=== PATIENT | female | born 1980 | race African-American/Black ===

== ENCOUNTER 2022-06-02 12:18 | Inpatient (IN) | payer OTHER ==
[2022-06-02] MEDS ORDERED: VANCOMYCIN 1 GM in D5W (PRE-DOCKED) 1,000 MG/250 ML IVPB ONE (13:25)
[2022-06-02] MEDS ORDERED: PIPERACILLIN/TAZOB 3.375 GM 3.375 GM in DEXTROSE 5%-WATER - 50 ML IVPB ONE (13:25)
[2022-06-02] MEDS ORDERED: SODIUM CHLORIDE 0.9% 500 ML INFUS.BAG IV ONE (13:26)
[2022-06-02] MEDS ORDERED: MAG HYDROX/AL HYDROX/SIMETH 30 ML UNIT-DOSE CUP PO ONE (13:26)
[2022-06-02] MEDS ORDERED: ACETAMINOPHEN 1000 MG/100 ML BAG IVPB ONE (13:26)
[2022-06-02] MEDS ORDERED: ONDANSETRON 4 MG/2 ML VIAL IVPB ONE (13:26)
[2022-06-02] MEDS ORDERED: FAMOTIDINE 20 MG/50 ML IVPB 20 MG/50 ML MG IVPB ONE (13:26)
[2022-06-02] MEDS ORDERED: ONDANSETRON 4 MG/2 ML VIAL ONE (14:10)
[2022-06-02] MEDS ORDERED: ACETAMINOPHEN INJECTION 100 ML IVPB ONE (14:10)
[2022-06-02] MEDS ORDERED: VANCOMYCIN/WATER FOR INJ (PEG) 1,000 MG/200 ML BAG IVPB ONE (14:10)
[2022-06-02] MEDS ORDERED: MAG HYDROX/AL HYDROX/SIMETH 30 ML UNIT-DOSE CUP ONE (14:10)
[2022-06-02] MEDS ORDERED: PIPERACILLIN/TAZOB 3.375 GM 3.375 GM/50 ML BAG IVPB ONE (14:11)
[2022-06-02 15:34] LABS: EPI CELLS 36 /uL (0-25.1); HYALINE CASTS 2 /uL (0-3.1); URINE APPEARANCE CLOUDY; URINE BACTERIA >9,000 /uL (0-1359); URINE BILIRUBIN NEGATIVE (NEGATIVE); URINE COLOR YELLOW; URINE GLUCOSE (UA) 3+ (NEGATIVE); URINE KETONE 1+ (NEGATIVE); URINE LEUK ESTERASE NEGATIVE (NEGATIVE); URINE NITRITE NEGATIVE (NEGATIVE); URINE PROTEIN 3+ (NEGATIVE); URINE RBC 5 /uL (0-23.9); URINE UROBILINOGEN 0.2 mg/dL (0.2-1.0)
[2022-06-02 15:59] LABS: VENOUS BASE EXCESS -1.1 mmol/L (-2-2); VENOUS O2 SATURATION 96.1 % (70-80); VENOUS PCO2 44.8 mmHg (38-52); VENOUS PH 7.355 (7.310-7.410)
[2022-06-02 16:10] LABS: BASO % 0.4 % (0-2.0); HEMATOCRIT 25.7 % (32.4-45.2); HEMOGLOBIN 8.7 GM/dL (10.7-15.3); LYMPH % 2.1 % (8-40); MCH 30.9 pg (25.7-33.7); MCHC 33.9 g/dl (32.0-36.0); MEAN CELL VOLUME 91.4 fl (80-96); MEAN PLT VOLUME 8.3 fl (7.5-11.1); NEUT % 93.5 % (42.8-82.8); PLATELET COUNT 312 10^3/uL (134-434); RBC 2.81 M/mm3 (3.60-5.2); RDW 12.5 % (11.6-15.6); WHITE BLOOD COUNT 11.9 K/mm3 (4.0-10.0)
[2022-06-02 16:13] LABS: CHLORIDE 98 mmol/L (98-107); SODIUM 135 mmol/L (136-145)
[2022-06-02 16:17] LABS: ALBUMIN 2.4 g/dl (3.4-5.0); ANION GAP 14 MMOL/L (8-16); BLOOD UREA NITROGEN 18.4 mg/dL (7-18); CALCIUM 8.7 mg/dL (8.5-10.1); CO2 23 mmol/L (21-32)
[2022-06-02 16:19] LABS: LIPASE 101 U/L (73-393)
[2022-06-02 16:20] LABS: CREATININE 1.1 mg/dL (0.55-1.3); SGPT/ALT 13 U/L (13-61)
[2022-06-02 16:21] LABS: SGOT/AST 14 U/L (15-37)
[2022-06-02 16:22] LABS: BILIRUBIN,TOTAL 0.3 mg/dL (0.2-1); TOT PROT 6.8 g/dl (6.4-8.2)
[2022-06-02 16:23] LABS: ALK PHOS 98 U/L (45-117)
[2022-06-02 16:34] LABS: GLUCOSE,RANDOM 434 mg/dL (74-106)
[2022-06-02] MEDS ORDERED: INSULIN (NOVOLOG) ASPART 100 UNITS/ML 10ML VIAL SQ ONE (16:40)
[2022-06-02 16:57] LABS: URINE WBC 93.7 /uL (0-25.8)
[2022-06-02 17:09] LABS: ANISOCYTOSIS 0; MACROCYTOSIS 0; OVALOCYTE 1+
[2022-06-02] MEDS ORDERED: SODIUM CHLORIDE 1,000 ML IV STA (17:38)
[2022-06-02] MEDS: ENOXAPARIN NA (PORCINE) 40 MG/0.4 ML DISP.SYRIN SQ SCH (18:58)
[2022-06-02] MEDS ORDERED: ENOXAPARIN NA (PORCINE) 40 MG/0.4 ML DISP.SYRIN SQ ONE (19:00)
[2022-06-02] MEDS: SODIUM CHLORIDE 1,000 ML IV SCH (21:38)
[2022-06-03] MEDS: INSULIN SLIDING SCALE (NOVOLOG) 1 VIAL SQ SCH ×5 (03:24→23:01)
[2022-06-03 07:46] VITALS: BMI 24.3
[2022-06-03] MEDS ORDERED: INSULIN REGULAR HUMAN 100 UNITS/ML *VIAL SQ ONE (08:32)
[2022-06-03] MEDS ORDERED: VANCOMYCIN 1 GM/200 ML PREMIX BAG (RESTRICTED TO ID ONLY) IVPB ONE (09:00)
[2022-06-03] MEDS: INSULIN (LEVEMIR) 100 UNITS/ML UNITS SQ SCH ×2 (10:05→16:40)
[2022-06-03] MEDS: ENOXAPARIN NA (PORCINE) 40 MG/0.4 ML DISP.SYRIN SQ SCH (10:06)
[2022-06-03] MEDS: PIPERACILLIN/TAZOB 3.375 GM 3.375 GM in DEXTROSE 5%-WATER - 50 ML IVPB SCH ×2 (10:06→17:21)
[2022-06-03 10:49] LABS: HEMATOCRIT 23.2 % (32.4-45.2); HEMOGLOBIN 7.8 GM/dL (10.7-15.3); MCH 30.6 pg (25.7-33.7); MCHC 33.7 g/dl (32.0-36.0); MEAN CELL VOLUME 90.9 fl (80-96); MEAN PLT VOLUME 7.4 fl (7.5-11.1); PLATELET COUNT 304 10^3/uL (134-434); RBC 2.55 M/mm3 (3.60-5.2); RDW 12.7 % (11.6-15.6); WHITE BLOOD COUNT 13.1 K/mm3 (4.0-10.0)
[2022-06-03 11:19] LABS: ALBUMIN 2.1 g/dl (3.4-5.0); BLOOD UREA NITROGEN 18.4 mg/dL (7-18); CALCIUM 8.7 mg/dL (8.5-10.1); MAGNESIUM 1.6 mg/dL (1.8-2.4)
[2022-06-03 11:22] LABS: CREATININE 0.9 mg/dL (0.55-1.3); PHOSPHOROUS 1.9 mg/dL (2.5-4.9)
[2022-06-03 11:23] LABS: BILIRUBIN,TOTAL 0.3 mg/dL (0.2-1); TOT PROT 6.4 g/dl (6.4-8.2)
[2022-06-03] MEDS: INSULIN (NOVOLOG) ASPART 100 UNITS/ML 10ML VIAL SQ SCH ×2 (11:30→16:43)
[2022-06-03] MEDS ORDERED: FLU VACC QS2022-23(6MOS UP)/PF 60 MCG/0.5 ML SYRINGE IM ONE (12:00)
[2022-06-03 12:47] LABS: EPI CELLS >36 /uL (0-25.1); HYALINE CASTS 5 /uL (0-3.1); PH,URINE 5.5 (5.0-8.0); URINE APPEARANCE CLOUDY; URINE BILIRUBIN NEGATIVE (NEGATIVE); URINE COLOR YELLOW; URINE GLUCOSE (UA) 3+ (NEGATIVE); URINE KETONE TRACE (NEGATIVE); URINE LEUK ESTERASE 2+ (NEGATIVE); URINE NITRITE POSITIVE (NEGATIVE); URINE PROTEIN 3+ (NEGATIVE); URINE UROBILINOGEN 0.2 mg/dL (0.2-1.0); URINE WBC 535 /uL (0-25.8)
[2022-06-03 12:49] LABS: PHENCYCLIDINE,URINE NEGATIVE (NEGATIVE); URINE BARBITURATES NEGATIVE (NEGATIVE)
[2022-06-03 12:50] LABS: COCAINE, UR NEGATIVE (NEGATIVE); METHADONE, UR NEGATIVE (NEGATIVE)
[2022-06-03 12:55] LABS: OPIATES, URI NEGATIVE (NEGATIVE)
[2022-06-03 12:57] LABS: URINE AMPHETAMINES NEGATIVE (NEGATIVE); URINE BENZODIAZEPINES NEGATIVE (NEGATIVE); URINE RBC 18.3 /uL (0-23.9); YEAST NEGATIVE (NEGATIVE)
[2022-06-03] MEDS: BACITRACIN ZINC 15 GM TUBE TOPICAL OINTMENT TP SCH (14:48)
[2022-06-03] MEDS ORDERED: NAPH,MB-DB/K PH,MBDB POWDER PACKET PO ONE (16:23)
[2022-06-03] MEDS ORDERED: MAGNESIUM SULF 50% (8.12 MEQ/2 ML-1 GM VIAL) IVPB ONE (16:23)
[2022-06-03] MEDS: SODIUM CHLORIDE 1,000 ML IV SCH (17:21)
[2022-06-03] MEDS ORDERED: INSULIN (NOVOLOG) ASPART 100 UNITS/ML 10ML VIAL ONE (21:41)
[2022-06-04] MEDS: PIPERACILLIN/TAZOB 3.375 GM 3.375 GM in DEXTROSE 5%-WATER - 50 ML IVPB SCH ×3 (01:09→17:25)
[2022-06-04] MEDS ORDERED: INSULIN (LEVEMIR) 100 UNITS/ML UNITS SQ ONE ×2 (05:23→11:05)
[2022-06-04] MEDS: INSULIN (LEVEMIR) 100 UNITS/ML UNITS SQ SCH (06:44)
[2022-06-04] MEDS: INSULIN (NOVOLOG) ASPART 100 UNITS/ML 10ML VIAL SQ SCH ×2 (06:45→12:06)
[2022-06-04] MEDS: INSULIN SLIDING SCALE (NOVOLOG) 1 VIAL SQ SCH ×2 (06:45→11:16)
[2022-06-04] MEDS: BACITRACIN ZINC 15 GM TUBE TOPICAL OINTMENT TP SCH (09:48)
[2022-06-04] MEDS: ENOXAPARIN NA (PORCINE) 40 MG/0.4 ML DISP.SYRIN SQ SCH (09:48)
[2022-06-04 10:32] LABS: HEMATOCRIT 25.4 % (32.4-45.2); HEMOGLOBIN 8.6 GM/dL (10.7-15.3); MCH 30.8 pg (25.7-33.7); MCHC 33.8 g/dl (32.0-36.0); MEAN CELL VOLUME 91.3 fl (80-96); MEAN PLT VOLUME 7.6 fl (7.5-11.1); PLATELET COUNT 360 10^3/uL (134-434); RBC 2.78 M/mm3 (3.60-5.2); RDW 12.9 % (11.6-15.6); WHITE BLOOD COUNT 9.2 K/mm3 (4.0-10.0)
[2022-06-04 11:04] VITALS: RESP 17
[2022-06-04] MEDS ORDERED: INSULIN (NOVOLOG) ASPART 100 UNITS/ML 10ML VIAL SQ SCH (11:06)
[2022-06-04 11:08] LABS: CALCIUM 8.8 mg/dL (8.5-10.1)
[2022-06-04 11:09] LABS: ALBUMIN 2.1 g/dl (3.4-5.0); BLOOD UREA NITROGEN 10.9 mg/dL (7-18)
[2022-06-04 11:11] LABS: BILIRUBIN,TOTAL 0.3 mg/dL (0.2-1); TOT PROT 6.6 g/dl (6.4-8.2)
[2022-06-04 11:12] LABS: CREATININE 0.8 mg/dL (0.55-1.3)
[2022-06-04] MEDS ORDERED: INSULIN SLIDING SCALE (NOVOLOG) 1 VIAL SQ SCH (16:15)
[2022-06-04] MEDS ORDERED: INSULIN (LEVEMIR) 100 UNITS/ML UNITS SQ SCH (22:00)
[2022-06-04 23:54] VITALS: BP 145/91; PULSE 110; TEMP 98.2
== END 2022-06-04 21:00 | disposition short-term general hospital (02) | DRG 638 ==
LOC: JER 12:18 → JERBED 16:45 → J7W 06-03 01:44
PROVIDERS: ADMIT Internal Medicine; ATTEND Internal Medicine
DX: E11.69 Type 2 diabetes mellitus with other specified complication (principal); M86.8X7 Other osteomyelitis, ankle and foot; D64.9 Anemia, unspecified; J45.909 Unspecified asthma, uncomplicated; K58.9 Irritable bowel syndrome, unspecified; E11.65 Type 2 diabetes mellitus with hyperglycemia; R00.0 Tachycardia, unspecified; D72.829 Elevated white blood cell count, unspecified; Z79.4 Long term (current) use of insulin; Z91.14 Patient's other noncompliance with medication regimen; R11.2 Nausea with vomiting, unspecified
CPT/HCPCS: 0241U-QW; 36415; 73630-TC-LT; 73660-TC-LT-FY; 80053; 80307; 81003; 82010; 82803; 82962; 83036; 83605; 83690; 83735; 84100; 84443; 85025; 85027; 87040; 87070; 87086; 87186; 87205; 93005; 93010; 93971-TC; 99285-25; G0008; Q2036

== ENCOUNTER 2022-10-01 16:42 | Emergency (ER) | payer OTHER ==
[2022-10-01] MEDS ORDERED: SODIUM CHLORIDE 0.9% 500 ML INFUS.BAG IV ONE (17:17)
[2022-10-01] MEDS ORDERED: TRIMETHOBENZAMIDE HCL 200MG/2ML INJ IM ONE ×2 (17:20→17:50)
[2022-10-01] MEDS ORDERED: DEXTROSE 50%-WATER 25 GM/50 ML DISP.SYRIN ONE (17:36)
[2022-10-01] MEDS ORDERED: DEXTROSE 50%-WATER - 25 GM/50 ML VIAL IVPUSH ONE (17:39)
[2022-10-01] MEDS ORDERED: LACTATED RINGERS SOLUTION 1000 ML INFUS.BAG IV ONE (17:40)
[2022-10-01] MEDS ORDERED: MAGNESIUM SULF 50% (8.12 MEQ/2 ML-1 GM VIAL) IVPB ONE (17:49)
[2022-10-01] MEDS ORDERED: MAGNESIUM SULFATE IN WATER 2 GM/50 ML IVPB IVPB ONE (17:51)
[2022-10-01 18:07] LABS: BASO % 0.9 % (0-2.0); EOS % 0.7 % (0-4.5); HEMATOCRIT 31.7 % (32.4-45.2); HEMOGLOBIN 11.1 GM/dL (10.7-15.3); LYMPH % 29.2 % (8-40); MCH 31.5 pg (25.7-33.7); MEAN CELL VOLUME 90.2 fl (80-96); MEAN PLT VOLUME 8.3 fl (7.5-11.1); MONO % 11.2 % (3.8-10.2); PLATELET COUNT 347 10^3/uL (134-434); RBC 3.52 M/mm3 (3.60-5.2); WHITE BLOOD COUNT 7.9 K/mm3 (4.0-10.0)
[2022-10-01 18:18] VITALS: BMI 22.3
[2022-10-01 18:30] LABS: ALBUMIN 3.5 g/dl (3.4-5.0); CALCIUM 9.5 mg/dL (8.5-10.1)
[2022-10-01 18:31] LABS: BLOOD UREA NITROGEN 26.3 mg/dL (7-18); MAGNESIUM 1.2 mg/dL (1.8-2.4)
[2022-10-01 18:33] LABS: CREATININE 1.1 mg/dL (0.55-1.3)
[2022-10-01 18:34] LABS: PHOSPHOROUS 2.8 mg/dL (2.5-4.9)
[2022-10-01 18:35] LABS: BILIRUBIN,TOTAL 0.3 mg/dL (0.2-1); TOT PROT 7.4 g/dl (6.4-8.2)
[2022-10-01 18:40] LABS: VENOUS O2 SATURATION 71.3 % (70-80); VENOUS PCO2 41.9 mmHg (38-52); VENOUS PH 7.3 (7.310-7.410)
[2022-10-01 20:11] LABS: EPI CELLS 15 /uL (0-25.1); HYALINE CASTS 3 /uL (0-3.1); URINE APPEARANCE CLOUDY; URINE BACTERIA >9,000 /uL (0-1359); URINE BILIRUBIN NEGATIVE (NEGATIVE); URINE COLOR YELLOW; URINE GLUCOSE (UA) 3+ (NEGATIVE); URINE KETONE TRACE (NEGATIVE); URINE LEUK ESTERASE 1+ (NEGATIVE); URINE NITRITE NEGATIVE (NEGATIVE); URINE PROTEIN 2+ (NEGATIVE); URINE UROBILINOGEN 0.2 mg/dL (0.2-1.0); URINE WBC 257 /uL (0-25.8)
[2022-10-01 20:17] LABS: URINE RBC 24.5 /uL (0-23.9)
[2022-10-01] MEDS ORDERED: KCL 10 MEQ IVPB 10 MEQ/100 ML INFUS.BAG IVPB ONE ×3 (20:39→23:45)
[2022-10-01] MEDS: KCL 10 MEQ IVPB 10 MEQ/100 ML INFUS.BAG IVPB SCH ×3 (20:50→22:31)
[2022-10-02 01:06] VITALS: BP 146/98; PULSE 103; RESP 18; TEMP 97.9
== END 2022-10-02 02:05 | disposition home or self-care (01) ==
LOC: JER 16:42
PROC: 3E033GC Introduction of Other Therapeutic Substance into Peripheral Vein, Percutaneous Approach (ICD-10-PCS; principal; 2022-10-01)
PROC: 3E033GC Introduction of Other Therapeutic Substance into Peripheral Vein, Percutaneous Approach (ICD-10-PCS; 2022-10-01)
PROC: 3E033GC Introduction of Other Therapeutic Substance into Peripheral Vein, Percutaneous Approach (ICD-10-PCS; 2022-10-01)
PROC: 3E023GC Introduction of Other Therapeutic Substance into Muscle, Percutaneous Approach (ICD-10-PCS; 2022-10-01)
DX: R11.2 Nausea with vomiting, unspecified (principal); E83.42 Hypomagnesemia; E87.6 Hypokalemia; Z20.822 Contact with and (suspected) exposure to COVID-19
CPT/HCPCS: 0241U-QW; 36415; 80053; 81003; 82010; 82803; 82962; 83690; 83735; 84100; 84484; 84703; 85025; 86850; 86900; 86901; 87086; 87186; 93005; 93010; 99284-25

== ENCOUNTER 2022-11-19 11:43 | Emergency (ER) | payer OTHER ==
[2022-11-19 12:26] VITALS: BMI 23.5
[2022-11-19] MEDS ORDERED: SODIUM CHLORIDE 0.9% 500 ML INFUS.BAG IV ONE (13:53)
[2022-11-19 14:32] LABS: BASO % 0.6 % (0-2.0); EOS % 1.8 % (0-4.5); HEMATOCRIT 27.5 % (32.4-45.2); HEMOGLOBIN 9.2 GM/dL (10.7-15.3); MCH 31.6 pg (25.7-33.7); MCHC 33.3 g/dl (32.0-36.0); MEAN CELL VOLUME 94.8 fl (80-96); MEAN PLT VOLUME 8.8 fl (7.5-11.1); MONO % 11.6 % (3.8-10.2); PLATELET COUNT 270 10^3/uL (134-434); RDW 14.7 % (11.6-15.6); WHITE BLOOD COUNT 5.8 K/mm3 (4.0-10.0)
[2022-11-19 15:00] LABS: POTASSIUM 5.5 mmol/L (3.5-5.1)
[2022-11-19 15:03] LABS: BLOOD UREA NITROGEN 14.8 mg/dL (7-18); MAGNESIUM 1.4 mg/dL (1.8-2.4)
[2022-11-19] MEDS ORDERED: MAGNESIUM SULF 50% (8.12 MEQ/2 ML-1 GM VIAL) IVPB ONE (15:03)
[2022-11-19 15:06] LABS: CREATININE 0.7 mg/dL (0.55-1.3)
[2022-11-19 15:07] LABS: VENOUS BASE EXCESS -1.5 mmol/L (-2-2); VENOUS O2 SATURATION 50.1 % (70-80); VENOUS PCO2 45.9 mmHg (38-52); VENOUS PH 7.342 (7.310-7.410)
[2022-11-19 15:08] LABS: BILIRUBIN,TOTAL 0.3 mg/dL (0.2-1)
[2022-11-19 15:11] LABS: N-TERMINAL BNP 188.5 pg/ml (5-125)
[2022-11-19 15:19] LABS: INR 0.97 (0.83-1.09); PROTHROMBIN TIME (PATIENT) 11.2 SEC (9.7-13.0)
[2022-11-19 15:22] LABS: ACTIVATED PTT 38.2 SECONDS (25.2-36.5)
[2022-11-19 15:24] LABS: EPI CELLS 1 /uL (0-25.1); HYALINE CASTS 0 /uL (0-3.1); PH,URINE 5.5 (5.0-8.0); URINE APPEARANCE CLEAR; URINE BACTERIA 7149 /uL (0-1359); URINE BILIRUBIN NEGATIVE (NEGATIVE); URINE COLOR YELLOW; URINE GLUCOSE (UA) NEGATIVE (NEGATIVE); URINE KETONE NEGATIVE (NEGATIVE); URINE LEUK ESTERASE NEGATIVE (NEGATIVE); URINE NITRITE NEGATIVE (NEGATIVE); URINE PROTEIN 1+ (NEGATIVE); URINE RBC 87 /uL (0-23.9); URINE UROBILINOGEN 0.2 mg/dL (0.2-1.0); URINE WBC 25 /uL (0-25.8)
[2022-11-19 15:27] VITALS: RESP 19
[2022-11-19] MEDS ORDERED: CEFTRIAXONE 1,000 MG in DEXTROSE 5%-WATER - 50 ML IVPB ONE (15:51)
[2022-11-19] MEDS ORDERED: CEFTRIAXONE 1 GM/50 ML BAG ONE (16:48)
[2022-11-19] MEDS ORDERED: MAGNESIUM SULFATE IN WATER 2 GM/50 ML IVPB IVPB ONE (16:48)
[2022-11-19 19:24] VITALS: BP 146/97; PULSE 107; TEMP 98.8
[2022-11-19] MEDS ORDERED: methylPREDNISolone NA SUCC 125 MG/2 ML VIAL IVPUSH ONE (19:31)
[2022-11-19] MEDS ORDERED: methylPREDNISolone NA SUCC 125 MG/2 ML VIAL ONE (19:36)
[2022-11-19 21:13] LABS: POTASSIUM 4.4 mmol/L (3.5-5.1)
[2022-11-19 21:14] LABS: CALCIUM 9.3 mg/dL (8.5-10.1)
[2022-11-19 21:15] LABS: BLOOD UREA NITROGEN 12.5 mg/dL (7-18)
[2022-11-19 21:18] LABS: CREATININE 0.7 mg/dL (0.55-1.3)
[2022-11-19] MEDS ORDERED: INSULIN (NOVOLOG) ASPART 100 UNITS/ML 10ML VIAL ONE (23:38)
== END 2022-11-19 22:43 | disposition home or self-care (01) ==
LOC: JER 11:43
PROC: 3E03329 Introduction of Other Anti-infective into Peripheral Vein, Percutaneous Approach (ICD-10-PCS; principal; 2022-11-19)
PROC: 3E033GC Introduction of Other Therapeutic Substance into Peripheral Vein, Percutaneous Approach (ICD-10-PCS; 2022-11-19)
PROC: 3E033GC Introduction of Other Therapeutic Substance into Peripheral Vein, Percutaneous Approach (ICD-10-PCS; 2022-11-19)
PROC: 3E033GC Introduction of Other Therapeutic Substance into Peripheral Vein, Percutaneous Approach (ICD-10-PCS; 2022-11-19)
DX: E11.649 Type 2 diabetes mellitus with hypoglycemia without coma (principal); R00.0 Tachycardia, unspecified; N39.0 Urinary tract infection, site not specified; D64.9 Anemia, unspecified; Z20.822 Contact with and (suspected) exposure to COVID-19
CPT/HCPCS: 0241U-QW; 36415; 71046-TC-FY; 71275-TC; 80048; 80053; 81003; 82533; 82803; 82962; 83036; 83735; 83880; 84439; 84443; 84703; 85025; 85379; 85610; 85730; 87086; 87186; 87651; 93005; 93010; 93970-TC; 99285-25; Q9967

== ENCOUNTER 2022-12-23 10:25 | Emergency (ER) | payer OTHER ==
[2022-12-23] MEDS ORDERED: LACTATED RINGERS SOLUTION 1000 ML INFUS.BAG IV ONE (10:52)
[2022-12-23] MEDS ORDERED: ONDANSETRON 4 MG/2 ML VIAL IVPUSH ONE (10:52)
[2022-12-23 11:09] VITALS: PULSE 93; TEMP 96.8
[2022-12-23] MEDS ORDERED: ONDANSETRON 4 MG/2 ML VIAL ONE (11:38)
[2022-12-23 11:44] LABS: EOS % 1.1 % (0-4.5); HEMATOCRIT 31.5 % (32.4-45.2); HEMOGLOBIN 10.6 GM/dL (10.7-15.3); MCH 31.2 pg (25.7-33.7); MCHC 33.5 g/dl (32.0-36.0); MEAN PLT VOLUME 8.1 fl (7.5-11.1); MONO % 10.1 % (3.8-10.2); NEUT % 61.8 % (42.8-82.8); PLATELET COUNT 241 10^3/uL (134-434); RBC 3.39 M/mm3 (3.60-5.2); RDW 13.6 % (11.6-15.6); WHITE BLOOD COUNT 4.9 K/mm3 (4.0-10.0)
[2022-12-23 11:55] LABS: POTASSIUM 4.6 mmol/L (3.5-5.1)
[2022-12-23 11:57] LABS: CALCIUM 9.1 mg/dL (8.5-10.1)
[2022-12-23 11:58] LABS: ALBUMIN 3.6 g/dl (3.4-5.0)
[2022-12-23 12:01] LABS: CREATININE 0.9 mg/dL (0.55-1.3)
[2022-12-23 12:02] LABS: BILIRUBIN,TOTAL 0.4 mg/dL (0.2-1); TOT PROT 7.4 g/dl (6.4-8.2)
[2022-12-23 13:59] LABS: EPI CELLS 14 /uL (0-25.1); HYALINE CASTS 0 /uL (0-3.1); URINE APPEARANCE CLEAR; URINE BACTERIA >9,000 /uL (0-1359); URINE BILIRUBIN NEGATIVE (NEGATIVE); URINE COLOR YELLOW; URINE GLUCOSE (UA) 2+ (NEGATIVE); URINE KETONE NEGATIVE (NEGATIVE); URINE LEUK ESTERASE NEGATIVE (NEGATIVE); URINE NITRITE POSITIVE (NEGATIVE); URINE PROTEIN NEGATIVE (NEGATIVE); URINE RBC 6 /uL (0-23.9); URINE UROBILINOGEN 0.2 mg/dL (0.2-1.0); URINE WBC 15 /uL (0-25.8)
[2022-12-23 14:33] VITALS: RESP 17
[2022-12-23 14:36] VITALS: BP 137/70
[2022-12-23] MEDS ORDERED: NITROFURANTOIN MACROCRYSTAL 50 MG CAPSULE (FP) PO SCH (14:45)
== END 2022-12-23 15:22 | disposition home or self-care (01) ==
LOC: JER 10:25
PROC: 3E033NZ Introduction of Analgesics, Hypnotics, Sedatives into Peripheral Vein, Percutaneous Approach (ICD-10-PCS; principal; 2022-12-23)
DX: E10.649 Type 1 diabetes mellitus with hypoglycemia without coma (principal); N39.0 Urinary tract infection, site not specified
CPT/HCPCS: 36415; 71045-TC-FY; 80053; 81003; 82962; 84484; 84703; 85025; 87086; 93005; 93010; 99285-25

== ENCOUNTER 2024-02-03 09:25 | Inpatient (IN) | payer OTHER ==
[2024-02-03 11:00] LABS: MCH 31.4 pg (25.7-33.7); MCHC 34.4 g/dl (32.0-36.0); MEAN CELL VOLUME 91.4 fl (80-96); MEAN PLT VOLUME 8.5 fl (7.5-11.1); PLATELET COUNT 369 10^3/uL (134-434); RBC 3.17 M/mm3 (3.60-5.2); RDW 12.9 % (11.6-15.6); WHITE BLOOD COUNT 7.5 K/mm3 (4.0-10.0)
[2024-02-03 11:17] LABS: CHLORIDE 100 mmol/L (98-107); POTASSIUM 5.7 mmol/L (3.5-5.1); SODIUM 131 mmol/L (136-145)
[2024-02-03 11:18] LABS: CALCIUM 9.5 mg/dL (8.5-10.1)
[2024-02-03 11:19] LABS: ALBUMIN 3.2 g/dl (3.4-5.0); ANION GAP 6 mmol/L (4-13); BLOOD UREA NITROGEN 13.2 mg/dL (7-18); CO2 26 mmol/L (21-32)
[2024-02-03 11:21] LABS: CREATININE 1.1 mg/dL (0.55-1.3); SGOT/AST 42 U/L (15-37); SGPT/ALT 16 U/L (13-61)
[2024-02-03 11:23] LABS: BILIRUBIN,TOTAL 0.6 mg/dL (0.2-1); GLUCOSE,RANDOM 431 mg/dL (74-106)
[2024-02-03 11:25] LABS: ALK PHOS 141 U/L (45-117)
[2024-02-03] MEDS: SODIUM CHLORIDE 1,000 ML IV STA ×2 (11:29→11:59)
[2024-02-03 11:44] LABS: ANISOCYTOSIS 0; HELMET CELLS 0; HOWELL-JOLLY BODIES 0; MACROCYTOSIS 0; OVALOCYTE 0; ROULEAU 0; SICKELED CELLS 0; TARGET CELLS 0; TEAR DROP CELLS 0; TOXIC GRANULATION 0
[2024-02-03] MEDS ORDERED: AMPICILLIN NA/SULBACTAM NA 3 GM/100 ML BAG IVPB ONE (11:49)
[2024-02-03] MEDS: AMPICILLIN NA/SULBACTAM NA 3 GM in SODIUM CHLORIDE 100 ML IVPB ONE (11:59)
[2024-02-03 12:05] LABS: EPI CELLS 30 /uL (0-25.1); HCG,QUALITATIVE URINE Negative; HYALINE CASTS 0 /uL (0-3.1); PH,URINE 5.5 (5.0-8.0); URINE APPEARANCE CLOUDY; URINE BACTERIA >9,000 /uL (0-1359); URINE BILIRUBIN NEGATIVE (NEGATIVE); URINE COLOR YELLOW; URINE GLUCOSE (UA) 3+ (NEGATIVE); URINE KETONE NEGATIVE (NEGATIVE); URINE LEUK ESTERASE NEGATIVE (NEGATIVE); URINE NITRITE NEGATIVE (NEGATIVE); URINE PROTEIN 2+ (NEGATIVE); URINE RBC 62 /uL (0-23.9); URINE UROBILINOGEN 0.2 mg/dL (0.2-1.0)
[2024-02-03] MEDS ORDERED: metoPROLOL SUCCINATE 25 MG TAB.SR.24H (FP) PO PRN (12:18)
[2024-02-03 12:57] LABS: URINE WBC 263.9 /uL (0-25.8)
[2024-02-03] MEDS: VANCOMYCIN 1,000 MG in DEXTROSE 5%-WATER - 250 ML IVPB SCH (13:24)
[2024-02-03 14:09] LABS: POTASSIUM 4.1 mmol/L (3.5-5.1)
[2024-02-03 14:10] LABS: CALCIUM 8.9 mg/dL (8.5-10.1)
[2024-02-03 14:12] LABS: BLOOD UREA NITROGEN 10.4 mg/dL (7-18)
[2024-02-03 14:14] LABS: CREATININE 0.9 mg/dL (0.55-1.3)
[2024-02-03] MEDS: DIPHENOXYLATE 2.5/ATROPINE.025 1 COMBO TABLET PO SCH (14:26)
[2024-02-03 17:23] VITALS: BMI 22.9
[2024-02-03] MEDS: INSULIN ASPART SLIDING SCALE (NOVOLOG) 1 VIAL SQ SCH (17:44)
[2024-02-03] MEDS ORDERED: AMPICILLIN NA/SULBACTAM NA 3 GM in SODIUM CHLORIDE 100 ML IVPB SCH (18:00)
[2024-02-03] MEDS ORDERED: CLINDAMYCIN 600MG PREMIX IVPB 600 MG/50 ML BAG IVPB SCH (18:00)
[2024-02-03] MEDS: CEFAZOLIN 1 GM in DEXTROSE 5%-WATER - 50 ML IVPB SCH (18:00)
[2024-02-03] MEDS: INSULIN (NOVOLOG) ASPART 100 UNITS/ML 10ML VIAL SQ SCH (18:26)
[2024-02-03] MEDS: ONDANSETRON 4 MG TABLET PO ONE (22:48)
[2024-02-04] MEDS: INSULIN (LEVEMIR) 100 UNITS/ML UNITS SQ SCH (07:00)
[2024-02-04] MEDS ORDERED: DIPHENOXYLATE 2.5/ATROPINE.025 1 COMBO TABLET PO PRN (09:41)
[2024-02-04] MEDS: ENOXAPARIN NA (PORCINE) 40 MG/0.4 ML DISP.SYRIN SQ SCH (10:01)
[2024-02-04 10:10] LABS: HEMATOCRIT 24.9 % (32.4-45.2); HEMOGLOBIN 8.6 GM/dL (10.7-15.3); MCH 31.5 pg (25.7-33.7); MCHC 34.4 g/dl (32.0-36.0); MEAN CELL VOLUME 91.6 fl (80-96); MEAN PLT VOLUME 8.1 fl (7.5-11.1); PLATELET COUNT 311 10^3/uL (134-434); RBC 2.72 M/mm3 (3.60-5.2); WHITE BLOOD COUNT 9.4 K/mm3 (4.0-10.0)
[2024-02-04 10:22] LABS: POTASSIUM 3.7 mmol/L (3.5-5.1)
[2024-02-04 10:26] LABS: ALBUMIN 2.6 g/dl (3.4-5.0)
[2024-02-04 10:28] LABS: CREATININE 0.8 mg/dL (0.55-1.3)
[2024-02-04 10:30] LABS: BILIRUBIN,TOTAL 0.2 mg/dL (0.2-1); TOT PROT 6.4 g/dl (6.4-8.2)
[2024-02-04] MEDS: ACETAMINOPHEN 325 MG TABLET (FP) PO PRN (20:12)
[2024-02-05 09:58] LABS: BASO % 0.5 % (0-2.0); EOS % 0.8 % (0-4.5); HEMATOCRIT 26.4 % (32.4-45.2); LYMPH % 17.3 % (8-40); MCH 31.6 pg (25.7-33.7); MEAN CELL VOLUME 92.9 fl (80-96); MEAN PLT VOLUME 8.1 fl (7.5-11.1); MONO % 7.7 % (3.8-10.2); NEUT % 73.7 % (42.8-82.8); PLATELET COUNT 309 10^3/uL (134-434); RBC 2.84 M/mm3 (3.60-5.2); RDW 12.9 % (11.6-15.6); WHITE BLOOD COUNT 7.8 K/mm3 (4.0-10.0)
[2024-02-05 10:45] LABS: POTASSIUM 4.1 mmol/L (3.5-5.1)
[2024-02-05 10:47] LABS: CALCIUM 8.8 mg/dL (8.5-10.1)
[2024-02-05 10:48] LABS: ALBUMIN 2.5 g/dl (3.4-5.0); BLOOD UREA NITROGEN 8.1 mg/dL (7-18); MAGNESIUM 1.4 mg/dL (1.8-2.4)
[2024-02-05 10:51] LABS: CREATININE 0.8 mg/dL (0.55-1.3); PHOSPHOROUS 2.5 mg/dL (2.5-4.9)
[2024-02-05 10:52] LABS: BILIRUBIN,TOTAL 0.4 mg/dL (0.2-1); TOT PROT 6.3 g/dl (6.4-8.2)
[2024-02-05] MEDS: DOXYCYCLINE HYCLATE 100 MG CAPSULE PO SCH (13:52)
[2024-02-05] MEDS ORDERED: LIDOCAINE HCL 1%, 10 MG/ML (20ML VIAL) SQ ONE (14:47)
[2024-02-05] MEDS: LIDOCAINE HCL 1%, 10 MG/ML (20ML VIAL) SQ ONE (17:15)
[2024-02-05] MEDS: MAGNESIUM SULF 50% (8.12 MEQ/2 ML-1 GM VIAL) IVPB ONE (17:30)
[2024-02-05 18:27] VITALS: RESP 18
[2024-02-05] MEDS ORDERED: traMADol HCL 50 MG TABLET PO PRN (19:07)
[2024-02-06 06:20] VITALS: TEMP 98.8
[2024-02-06 08:29] LABS: BASO % 0.9 % (0-2.0); HEMATOCRIT 26.2 % (32.4-45.2); LYMPH % 17.4 % (8-40); MCH 31.8 pg (25.7-33.7); MCHC 34.1 g/dl (32.0-36.0); MEAN CELL VOLUME 93.3 fl (80-96); MEAN PLT VOLUME 7.6 fl (7.5-11.1); MONO % 7.6 % (3.8-10.2); NEUT % 73.1 % (42.8-82.8); PLATELET COUNT 329 10^3/uL (134-434); RBC 2.81 M/mm3 (3.60-5.2); RDW 12.9 % (11.6-15.6); WHITE BLOOD COUNT 9.1 K/mm3 (4.0-10.0)
[2024-02-06 08:51] LABS: POTASSIUM 3.7 mmol/L (3.5-5.1)
[2024-02-06 08:58] LABS: CREATININE 0.9 mg/dL (0.55-1.3)
[2024-02-06 09:00] LABS: BILIRUBIN,TOTAL 0.4 mg/dL (0.2-1); TOT PROT 6.7 g/dl (6.4-8.2)
[2024-02-06 09:01] LABS: ALBUMIN 2.5 g/dl (3.4-5.0); BLOOD UREA NITROGEN 11.8 mg/dL (7-18); CALCIUM 9.1 mg/dL (8.5-10.1); MAGNESIUM 1.9 mg/dL (1.8-2.4)
[2024-02-06 09:04] LABS: PHOSPHOROUS 2.9 mg/dL (2.5-4.9)
[2024-02-06 10:35] VITALS: BP 103/78; PULSE 93
== END 2024-02-06 13:20 | disposition home or self-care (01) | DRG 603 ==
LOC: JER 09:25 → JERBED 11:54 → J5S 15:10
PROVIDERS: ADMIT Internal Medicine; ATTEND Internal Medicine
PROC: 0Y9H0ZZ Drainage of Right Lower Leg, Open Approach (ICD-10-PCS; principal; 2024-02-05)
DX: L03.115 Cellulitis of right lower limb (principal); L02.415 Cutaneous abscess of right lower limb; B95.7 Other staphylococcus as the cause of diseases classified elsewhere; E11.9 Type 2 diabetes mellitus without complications; K58.9 Irritable bowel syndrome, unspecified; R00.0 Tachycardia, unspecified; J45.909 Unspecified asthma, uncomplicated; N80.8 Other endometriosis; D64.9 Anemia, unspecified
CPT/HCPCS: 36415; 73590-TC-RT-FY; 76882-TC-RT-FY; 80048; 80053; 81003; 82010; 82962; 83036; 83605; 83735; 84100; 84703; 85025; 85027; 85651; 86140; 87040; 87070; 87086; 87186; 87205; 93005; 93010; 93971-TC; 99285-25

== ENCOUNTER 2024-07-25 08:57 | Inpatient (IN) | payer OTHER ==
[2024-07-25] MEDS ORDERED: ONDANSETRON 4 MG/2 ML VIAL ONE (09:26)
[2024-07-25] MEDS ORDERED: FAMOTIDINE 20 MG/50 ML IVPB 20 MG/50 ML MG IVPB ONE (09:26)
[2024-07-25] MEDS ORDERED: ACETAMINOPHEN INJECTION 100 ML ONE (09:26)
[2024-07-25] MEDS: ACETAMINOPHEN 1000 MG/100 ML BAG IVPB ONE (09:35)
[2024-07-25] MEDS: FAMOTIDINE 20 MG/50 ML IVPB 20 MG/50 ML MG IVPB ONE (09:45)
[2024-07-25] MEDS: ONDANSETRON 4 MG/2 ML VIAL IVPUSH ONE (09:55)
[2024-07-25] MEDS: LACTATED RINGERS SOLUTION 1000 ML INFUS.BAG IV ONE (10:00)
[2024-07-25 10:16] LABS: VENOUS BASE EXCESS -3.9 mmol/L (-2-2); VENOUS PCO2 44.7 mmHg (38-52); VENOUS PH 7.314 (7.310-7.410)
[2024-07-25 10:23] LABS: BASO % 0.5 % (0-2.0); EOS % 0.2 % (0-4.5); HEMATOCRIT 26.5 % (32.4-45.2); HEMOGLOBIN 8.7 GM/dL (10.7-15.3); LYMPH % 7.1 % (8-40); MCH 29.4 pg (25.7-33.7); MCHC 32.8 g/dl (32.0-36.0); MEAN CELL VOLUME 89.6 fl (80-96); MEAN PLT VOLUME 8.1 fl (7.5-11.1); MONO % 7.8 % (3.8-10.2); NEUT % 84.4 % (42.8-82.8); PLATELET COUNT 414 10^3/uL (134-434); RBC 2.95 M/mm3 (3.60-5.2); RDW 13.2 % (11.6-15.6); WHITE BLOOD COUNT 15.1 K/mm3 (4.0-10.0)
[2024-07-25 10:37] LABS: POTASSIUM 4.6 mmol/L (3.5-5.1)
[2024-07-25 10:41] LABS: ALBUMIN 2.5 g/dl (3.4-5.0); BLOOD UREA NITROGEN 24.9 mg/dL (7-18); CALCIUM 9.3 mg/dL (8.5-10.1); MAGNESIUM 1.7 mg/dL (1.8-2.4)
[2024-07-25 10:43] LABS: CREATININE 1.3 mg/dL (0.55-1.3)
[2024-07-25 10:45] LABS: PHOSPHOROUS 3.6 mg/dL (2.5-4.9); TOT PROT 7.5 g/dl (6.4-8.2)
[2024-07-25 10:46] LABS: BILIRUBIN,TOTAL 0.4 mg/dL (0.2-1)
[2024-07-25] MEDS: MAGNESIUM SULFATE IN WATER 2 GM/50 ML IVPB IVPB ONE (11:40)
[2024-07-25] MEDS ORDERED: MAGNESIUM SULFATE IN WATER 2 GM/50 ML IVPB IVPB ONE (12:14)
[2024-07-25 12:19] LABS: EPI CELLS 27 /uL (0-25.1); HYALINE CASTS 3 /uL (0-3.1); PH,URINE 5.5 (5.0-8.0); URINE APPEARANCE CLEAR; URINE BACTERIA >9,000 /uL (0-1359); URINE BILIRUBIN NEGATIVE (NEGATIVE); URINE COLOR YELLOW; URINE GLUCOSE (UA) 3+ (NEGATIVE); URINE KETONE 1+ (NEGATIVE); URINE LEUK ESTERASE NEGATIVE (NEGATIVE); URINE NITRITE NEGATIVE (NEGATIVE); URINE PROTEIN 4+ (NEGATIVE); URINE RBC 67 /uL (0-23.9); URINE UROBILINOGEN 0.2 mg/dL (0.2-1.0); URINE WBC 55 /uL (0-25.8)
[2024-07-25] MEDS: CEFTRIAXONE 1,000 MG in DEXTROSE 5%-WATER - 50 ML IVPB ONE (12:55)
[2024-07-25] MEDS ORDERED: CEFTRIAXONE 1 G/50 ML PREMIX 50 ML IVPB ONE (13:13)
[2024-07-25 14:03] LABS: CALCIUM 8.9 mg/dL (8.5-10.1)
[2024-07-25 14:04] LABS: BLOOD UREA NITROGEN 23.9 mg/dL (7-18)
[2024-07-25 14:07] LABS: CREATININE 1.2 mg/dL (0.55-1.3)
[2024-07-25] MEDS: SODIUM CHLORIDE 0.9% 500 ML INFUS.BAG IV ONE (14:40)
[2024-07-25 14:41] LABS: VENOUS BASE EXCESS -3.1 mmol/L (-2-2); VENOUS PCO2 41.7 mmHg (38-52); VENOUS PH 7.346 (7.310-7.410)
[2024-07-25] MEDS ORDERED: ALBUTEROL SO4 HFA INHALER IH PRN (16:03)
[2024-07-25 17:24] LABS: HCV DIAGNOSTIC IN-HOUSE W/RFLX NON-REACTIVE (NONREACTIVE)
[2024-07-25 17:25] LABS: HIV INTERPRETATION NEGATIVE (NEGATIVE)
[2024-07-25] MEDS: LACTATED RINGERS SOLUTION 1,000 ML/1,000 ML INFUS.BAG IV SCH (17:54)
[2024-07-25] MEDS: INSULIN (NOVOLOG) ASPART 100 UNITS/ML 10ML VIAL SQ ONE (17:54)
[2024-07-25] MEDS: INSULIN ASPART SLIDING SCALE (NOVOLOG) 1 VIAL SQ SCH (17:55)
[2024-07-25] MEDS ORDERED: DEXTROSE 50%-WATER - 25 GM/50 ML VIAL IVPUSH PRN (17:59)
[2024-07-25] MEDS: INSULIN (LEVEMIR) 100 UNITS/ML UNITS SQ SCH (21:18)
[2024-07-26 00:19] LABS: POTASSIUM 4.4 mmol/L (3.5-5.1)
[2024-07-26 00:21] LABS: ALBUMIN 2.1 g/dl (3.4-5.0)
[2024-07-26 00:22] LABS: BLOOD UREA NITROGEN 19.2 mg/dL (7-18)
[2024-07-26 00:24] LABS: CREATININE 1.1 mg/dL (0.55-1.3)
[2024-07-26 00:26] LABS: BILIRUBIN,TOTAL 0.3 mg/dL (0.2-1); TOT PROT 6.4 g/dl (6.4-8.2)
[2024-07-26] MEDS ORDERED: DEXTROSE 50%-WATER 25 GM/50 ML DISP.SYRIN IVPUSH PRN (06:17)
[2024-07-26 07:48] LABS: BASO % 0.3 % (0-2.0); EOS % 0.2 % (0-4.5); HEMATOCRIT 25.8 % (32.4-45.2); HEMOGLOBIN 8.4 GM/dL (10.7-15.3); LYMPH % 8.9 % (8-40); MCH 29.3 pg (25.7-33.7); MCHC 32.7 g/dl (32.0-36.0); MEAN CELL VOLUME 89.7 fl (80-96); MEAN PLT VOLUME 7.8 fl (7.5-11.1); MONO % 9.5 % (3.8-10.2); NEUT % 81.1 % (42.8-82.8); PLATELET COUNT 411 10^3/uL (134-434); RBC 2.88 M/mm3 (3.60-5.2); RDW 13.3 % (11.6-15.6); WHITE BLOOD COUNT 13.2 K/mm3 (4.0-10.0)
[2024-07-26 08:06] LABS: POTASSIUM 4.3 mmol/L (3.5-5.1)
[2024-07-26 08:11] LABS: CALCIUM 9.3 mg/dL (8.5-10.1)
[2024-07-26 08:12] LABS: ALBUMIN 2.2 g/dl (3.4-5.0); BLOOD UREA NITROGEN 17.4 mg/dL (7-18); MAGNESIUM 1.8 mg/dL (1.8-2.4)
[2024-07-26 08:15] LABS: PHOSPHOROUS 2.5 mg/dL (2.5-4.9)
[2024-07-26 08:16] LABS: BILIRUBIN,TOTAL 0.5 mg/dL (0.2-1); TOT PROT 6.7 g/dl (6.4-8.2)
[2024-07-26] MEDS ORDERED: ACETAMINOPHEN 325 MG TABLET (FP) PO PRN ×2 (09:08→10:07)
[2024-07-26] MEDS: CEFTRIAXONE 1 G/50 ML PREMIX 50 ML IVPB SCH (09:14)
[2024-07-26] MEDS: ENOXAPARIN NA (PORCINE) 40 MG/0.4 ML DISP.SYRIN SQ SCH (09:14)
[2024-07-26] MEDS: metoPROLOL SUCCINATE 25 MG TAB.SR.24H (FP) PO PRN (09:15)
[2024-07-26 12:10] VITALS: BMI 22.1
[2024-07-26] MEDS: FLU VACCINE (FLULAVAL) PF 45 MCG/0.5 ML SYRINGE 2024-2025 IM ONE (12:44)
[2024-07-26] MEDS: ACETAMINOPHEN 325 MG TABLET (FP) PO PRN (13:16)
[2024-07-26] MEDS: INSULIN (LEVEMIR) 100 UNITS/ML UNITS SQ SCH (21:56)
[2024-07-27] MEDS: INSULIN ASPART SLIDING SCALE (NOVOLOG) 1 VIAL SQ SCH (06:21)
[2024-07-27] MEDS: INSULIN (LEVEMIR) 100 UNITS/ML UNITS SQ SCH (06:23)
[2024-07-27 08:05] LABS: POTASSIUM 4.2 mmol/L (3.5-5.1)
[2024-07-27 08:07] LABS: HEMATOCRIT 23.7 % (32.4-45.2); HEMOGLOBIN 7.6 GM/dL (10.7-15.3); MCH 28.4 pg (25.7-33.7); MEAN CELL VOLUME 88.9 fl (80-96); MEAN PLT VOLUME 8.5 fl (7.5-11.1); PLATELET COUNT 357 10^3/uL (134-434); RBC 2.67 M/mm3 (3.60-5.2); RDW 13.5 % (11.6-15.6); WHITE BLOOD COUNT 15.8 K/mm3 (4.0-10.0)
[2024-07-27 08:10] LABS: CALCIUM 8.7 mg/dL (8.5-10.1); MAGNESIUM 1.6 mg/dL (1.8-2.4)
[2024-07-27 08:11] LABS: ALBUMIN 1.9 g/dl (3.4-5.0)
[2024-07-27 08:15] LABS: BILIRUBIN,TOTAL 0.5 mg/dL (0.2-1); TOT PROT 6.3 g/dl (6.4-8.2)
[2024-07-27] MEDS: MULTIVITAMINS THER W-MINERALS COMBO TABLET (FP) PO SCH (09:03)
[2024-07-27] MEDS: MAGNESIUM 1GM/D5W 100ML - 100 ML IVPB IVPB ONE (09:03)
[2024-07-27 15:44] LABS: HEMATOCRIT 21.1 % (32.4-45.2); MCH 29.4 pg (25.7-33.7); MEAN CELL VOLUME 89.1 fl (80-96); MEAN PLT VOLUME 8.1 fl (7.5-11.1); PLATELET COUNT 299 10^3/uL (134-434); RBC 2.37 M/mm3 (3.60-5.2); RDW 13.5 % (11.6-15.6); WHITE BLOOD COUNT 16.4 K/mm3 (4.0-10.0)
[2024-07-27 16:12] LABS: ANISOCYTOSIS 0; MACROCYTOSIS 0; OVALOCYTE 1+
[2024-07-27] MEDS: ACETAMINOPHEN 1000 MG/100 ML BAG IVPB ONE (18:45)
[2024-07-27] MEDS ORDERED: VANCOMYCIN/WATER FOR INJ (PEG) 1,000 MG/200 ML BAG IVPB SCH ×2 (19:00→20:00)
[2024-07-27 21:36] LABS: HEMOGLOBIN 7.1 GM/dL (10.7-15.3); MCH 28.6 pg (25.7-33.7); MCHC 32.2 g/dl (32.0-36.0); MEAN CELL VOLUME 88.9 fl (80-96); PLATELET COUNT 300 10^3/uL (134-434); RBC 2.48 M/mm3 (3.60-5.2); RDW 13.5 % (11.6-15.6); WHITE BLOOD COUNT 17.3 K/mm3 (4.0-10.0)
[2024-07-27] MEDS: PIPERACILLIN/TAZOB 3.375 GM 50 ML IVPB SCH ×2 (21:36→21:46)
[2024-07-27 21:55] LABS: POTASSIUM 4.1 mmol/L (3.5-5.1)
[2024-07-27 21:57] LABS: CALCIUM 8.7 mg/dL (8.5-10.1)
[2024-07-27 21:58] LABS: ALBUMIN 1.9 g/dl (3.4-5.0); BLOOD UREA NITROGEN 17.7 mg/dL (7-18)
[2024-07-27 22:01] LABS: CREATININE 1.1 mg/dL (0.55-1.3)
[2024-07-27 22:02] LABS: BILIRUBIN,TOTAL 0.5 mg/dL (0.2-1); TOT PROT 6.1 g/dl (6.4-8.2)
[2024-07-27] MEDS: SODIUM CHLORIDE 1,000 ML IV SCH (22:29)
[2024-07-27] MEDS: VANCOMYCIN 1 GM PREMIX (F) 1,000 MG/200 ML BAG IVPB SCH (23:05)
[2024-07-28] MEDS: ACETAMINOPHEN 1000 MG/100 ML BAG IVPB PRN (02:07)
[2024-07-28 15:43] LABS: HEMATOCRIT 20.8 % (32.4-45.2); MCH 28.6 pg (25.7-33.7); MEAN CELL VOLUME 89.5 fl (80-96); MEAN PLT VOLUME 7.8 fl (7.5-11.1); PLATELET COUNT 305 10^3/uL (134-434); RBC 2.32 M/mm3 (3.60-5.2); RDW 13.4 % (11.6-15.6); WHITE BLOOD COUNT 19.9 K/mm3 (4.0-10.0)
[2024-07-28 15:47] LABS: HEMOGLOBIN 6.6 GM/dL (10.7-15.3)
[2024-07-28] MEDS ORDERED: MIDAZOLAM HCL 2 MG/2 ML SINGLE DOSE VIAL ONE (18:40)
[2024-07-28] MEDS ORDERED: PROPOFOL 20 ML ONE (18:40)
[2024-07-28] MEDS ORDERED: SUCCINYLCHOLINE CHLORIDE 200 MG/10 ML SYRINGE ONE (18:44)
[2024-07-28] MEDS ORDERED: VANCOMYCIN 1,000 MG VIAL (RESTRICTED TO ID ONLY) ONE (19:14)
[2024-07-28] MEDS: VANCOMYCIN 1,000 MG VIAL (RESTRICTED TO ID ONLY) IVPB ONE (19:25)
[2024-07-28] MEDS ORDERED: GENTAMICIN SO4 80 MG/2 ML VIAL ONE (19:28)
[2024-07-28] MEDS ORDERED: ACETAMINOPHEN 1000 MG/100 ML BAG IVPB PRN (20:00)
[2024-07-28] MEDS ORDERED: ALBUTEROL SO4 HFA INHALER IH PRN (20:00)
[2024-07-28] MEDS ORDERED: DEXTROSE 50%-WATER 25 GM/50 ML DISP.SYRIN IVPUSH PRN (20:00)
[2024-07-28] MEDS ORDERED: ONDANSETRON 4 MG/2 ML VIAL IVPUSH PRN (20:11)
[2024-07-28] MEDS ORDERED: ACETAMINOPHEN INJECTION 100 ML ONE (20:19)
[2024-07-28 20:28] LABS: HEMATOCRIT 24.6 % (32.4-45.2); HEMOGLOBIN 8.2 GM/dL (10.7-15.3); MCH 29.3 pg (25.7-33.7); MCHC 33.5 g/dl (32.0-36.0); MEAN CELL VOLUME 87.5 fl (80-96); MEAN PLT VOLUME 7.4 fl (7.5-11.1); PLATELET COUNT 262 10^3/uL (134-434); RBC 2.82 M/mm3 (3.60-5.2); RDW 13.7 % (11.6-15.6)
[2024-07-28] MEDS: ACETAMINOPHEN 1000 MG/100 ML BAG IVPB ONE (20:29)
[2024-07-28] MEDS: LACTATED RINGERS SOLUTION 1,000 ML IV SCH (20:30)
[2024-07-28] MEDS: SODIUM CHLORIDE 1,000 ML IV SCH (22:00)
[2024-07-28 22:13] LABS: ANISOCYTOSIS 2+; MACROCYTOSIS 0
[2024-07-29] MEDS: PIPERACILLIN/TAZOB 3.375 GM 50 ML IVPB SCH ×2 (02:29→17:00)
[2024-07-29] MEDS: INSULIN (LEVEMIR) 100 UNITS/ML UNITS SQ SCH (06:45)
[2024-07-29] MEDS: INSULIN ASPART SLIDING SCALE (NOVOLOG) 1 VIAL SQ SCH (06:46)
[2024-07-29] MEDS: PIPERACILLIN/TAZOB 3.375 GM 3.375 GM in DEXTROSE 5%-WATER - 50 ML IVPB SCH (07:41)
[2024-07-29] MEDS: VANCOMYCIN 1,000 MG in DEXTROSE 5%-WATER - 250 ML IVPB SCH (07:42)
[2024-07-29] MEDS: INSULIN REGULAR HUMAN 100 UNITS/ML *VIAL IVPUSH ONE (07:43)
[2024-07-29 09:42] LABS: HEMATOCRIT 24.8 % (32.4-45.2); HEMOGLOBIN 8.2 GM/dL (10.7-15.3); MCHC 33.1 g/dl (32.0-36.0); MEAN CELL VOLUME 87.5 fl (80-96); MEAN PLT VOLUME 7.5 fl (7.5-11.1); PLATELET COUNT 282 10^3/uL (134-434); RBC 2.83 M/mm3 (3.60-5.2); RDW 14.3 % (11.6-15.6); WHITE BLOOD COUNT 21.2 K/mm3 (4.0-10.0)
[2024-07-29 09:57] LABS: POTASSIUM 3.5 mmol/L (3.5-5.1)
[2024-07-29 09:59] LABS: ALBUMIN 1.7 g/dl (3.4-5.0); BLOOD UREA NITROGEN 14.5 mg/dL (7-18); CALCIUM 8.4 mg/dL (8.5-10.1)
[2024-07-29 10:03] LABS: CREATININE 1.2 mg/dL (0.55-1.3)
[2024-07-29 10:04] LABS: BILIRUBIN,TOTAL 0.5 mg/dL (0.2-1); TOT PROT 6.1 g/dl (6.4-8.2)
[2024-07-29 10:13] LABS: ANISOCYTOSIS 0; MACROCYTOSIS 0
[2024-07-29] MEDS: metoPROLOL SUCCINATE 25 MG TAB.SR.24H (FP) PO PRN (11:02)
[2024-07-29] MEDS: MULTIVITAMINS THER W-MINERALS COMBO TABLET (FP) PO SCH (11:02)
[2024-07-29] MEDS ORDERED: VANCOMYCIN 1 GM PREMIX (F) 1 GM/200 ML BAG IVPB SCH (12:00)
[2024-07-29] MEDS: VANCOMYCIN 1 GM PREMIX (F) 1 GM/200 ML BAG IVPB SCH (12:12)
[2024-07-29] MEDS ORDERED: PIPERACILLIN/TAZOB 3.375 GM 50 ML IVPB SCH (18:00)
[2024-07-30 08:02] LABS: POTASSIUM 4.1 mmol/L (3.5-5.1)
[2024-07-30 08:08] LABS: ALBUMIN 1.7 g/dl (3.4-5.0); CALCIUM 8.5 mg/dL (8.5-10.1); MAGNESIUM 1.8 mg/dL (1.8-2.4)
[2024-07-30 08:11] LABS: CREATININE 1.7 mg/dL (0.55-1.3); HEMATOCRIT 24.1 % (32.4-45.2); HEMOGLOBIN 7.9 GM/dL (10.7-15.3); MCH 29.5 pg (25.7-33.7); MCHC 32.6 g/dl (32.0-36.0); MEAN CELL VOLUME 90.4 fl (80-96); MEAN PLT VOLUME 8.1 fl (7.5-11.1); PHOSPHOROUS 2.9 mg/dL (2.5-4.9); PLATELET COUNT 300 10^3/uL (134-434); RBC 2.67 M/mm3 (3.60-5.2); RDW 14.9 % (11.6-15.6); WHITE BLOOD COUNT 16.8 K/mm3 (4.0-10.0)
[2024-07-30 08:13] LABS: BILIRUBIN,TOTAL 0.6 mg/dL (0.2-1)
[2024-07-30] MEDS ORDERED: ACETAMINOPHEN WITH CODEINE 300MG/30MG TABLET PO PRN (11:15)
[2024-07-30] MEDS: ACETAMINOPHEN 325 MG TABLET (FP) PO PRN (14:53)
[2024-07-31 08:14] LABS: HEMATOCRIT 25.3 % (32.4-45.2); HEMOGLOBIN 8.3 GM/dL (10.7-15.3); MCH 29.3 pg (25.7-33.7); MCHC 32.8 g/dl (32.0-36.0); MEAN CELL VOLUME 89.4 fl (80-96); MEAN PLT VOLUME 7.2 fl (7.5-11.1); PLATELET COUNT 364 10^3/uL (134-434); RBC 2.83 M/mm3 (3.60-5.2); RDW 14.3 % (11.6-15.6)
[2024-07-31 08:18] LABS: HEMATOCRIT 25.3 % (32.4-45.2); HEMOGLOBIN 8.3 GM/dL (10.7-15.3); MCH 29.2 pg (25.7-33.7); MCHC 32.6 g/dl (32.0-36.0); MEAN CELL VOLUME 89.6 fl (80-96); MEAN PLT VOLUME 7.4 fl (7.5-11.1); PLATELET COUNT 375 10^3/uL (134-434); RBC 2.83 M/mm3 (3.60-5.2); RDW 14.4 % (11.6-15.6); WHITE BLOOD COUNT 13.2 K/mm3 (4.0-10.0)
[2024-07-31 08:41] LABS: POTASSIUM 3.9 mmol/L (3.5-5.1)
[2024-07-31 08:43] LABS: BLOOD UREA NITROGEN 18.3 mg/dL (7-18); CALCIUM 8.6 mg/dL (8.5-10.1)
[2024-07-31 08:44] LABS: ALBUMIN 1.7 g/dl (3.4-5.0); MAGNESIUM 1.7 mg/dL (1.8-2.4)
[2024-07-31 08:48] LABS: CREATININE 1.4 mg/dL (0.55-1.3); PHOSPHOROUS 2.3 mg/dL (2.5-4.9)
[2024-07-31 08:49] LABS: BILIRUBIN,TOTAL 0.5 mg/dL (0.2-1); TOT PROT 6.3 g/dl (6.4-8.2)
[2024-07-31] MEDS ORDERED: ACETAMINOPHEN WITH CODEINE 300MG/30MG TABLET PO PRN (09:12)
[2024-07-31 09:50] LABS: ANISOCYTOSIS 0; HELMET CELLS 0; HOWELL-JOLLY BODIES 0; MACROCYTOSIS 0; OVALOCYTE 0; ROULEAU 0; SICKELED CELLS 0; TARGET CELLS 0; TEAR DROP CELLS 0; TOXIC GRANULATION 0
[2024-07-31] MEDS ORDERED: HEPARIN NA (PORCINE) 5,000 UNITS/ML 1ML VIAL SQ SCH (14:00)
[2024-07-31] MEDS: MAGNESIUM OXIDE 400 MG TABLET (FP) PO ONE (14:42)
[2024-07-31] MEDS: HEPARIN NA (PORCINE) 5,000 UNITS/ML 1ML VIAL SQ SCH (14:42)
[2024-07-31] MEDS: INSULIN ASPART SLIDING SCALE (NOVOLOG) 1 VIAL SQ SCH (17:38)
[2024-08-01] MEDS: INSULIN (LEVEMIR) 100 UNITS/ML UNITS SQ SCH (06:11)
[2024-08-01 07:33] LABS: HEMATOCRIT 22.6 % (32.4-45.2); HEMOGLOBIN 7.6 GM/dL (10.7-15.3); MCH 29.6 pg (25.7-33.7); MCHC 33.5 g/dl (32.0-36.0); MEAN CELL VOLUME 88.3 fl (80-96); MEAN PLT VOLUME 7.2 fl (7.5-11.1); PLATELET COUNT 313 10^3/uL (134-434); RBC 2.56 M/mm3 (3.60-5.2); RDW 13.9 % (11.6-15.6); WHITE BLOOD COUNT 9.5 K/mm3 (4.0-10.0)
[2024-08-01 07:36] LABS: POTASSIUM 4.1 mmol/L (3.5-5.1)
[2024-08-01 07:55] LABS: MAGNESIUM 1.5 mg/dL (1.8-2.4)
[2024-08-01 07:57] LABS: CALCIUM 8.5 mg/dL (8.5-10.1)
[2024-08-01 07:58] LABS: ALBUMIN 1.7 g/dl (3.4-5.0); BLOOD UREA NITROGEN 13.3 mg/dL (7-18)
[2024-08-01 08:01] LABS: CREATININE 1.1 mg/dL (0.55-1.3)
[2024-08-01 08:02] LABS: BILIRUBIN,TOTAL 0.4 mg/dL (0.2-1); TOT PROT 6.2 g/dl (6.4-8.2)
[2024-08-01 09:06] LABS: ANISOCYTOSIS 0; MACROCYTOSIS 0
[2024-08-01] MEDS: NAPH,MB-DB/K PH,MBDB POWDER PACKET PO SCH (10:49)
[2024-08-01] MEDS: MAGNESIUM SULFATE IN WATER 2 GM/50 ML IVPB IVPB ONE (15:01)
[2024-08-01] MEDS: BENZOCAINE/MENTH/CETYLPYRD CL 1 EACH LOZENGE MM PRN (17:52)
[2024-08-02 07:18] LABS: HEMATOCRIT 21.4 % (32.4-45.2); HEMOGLOBIN 7.2 GM/dL (10.7-15.3); MCH 29.6 pg (25.7-33.7); MCHC 33.7 g/dl (32.0-36.0); MEAN CELL VOLUME 87.8 fl (80-96); MEAN PLT VOLUME 6.6 fl (7.5-11.1); PLATELET COUNT 290 10^3/uL (134-434); RBC 2.43 M/mm3 (3.60-5.2); RDW 14.5 % (11.6-15.6); WHITE BLOOD COUNT 7.1 K/mm3 (4.0-10.0)
[2024-08-02 07:59] LABS: MAGNESIUM 1.4 mg/dL (1.8-2.4)
[2024-08-02 09:20] LABS: ANISOCYTOSIS 1+; MACROCYTOSIS 0; OVALOCYTE 1+
[2024-08-02] MEDS: OSELTAMIVIR PHOSPHATE 75 MG CAPSULE PO SCH (11:48)
[2024-08-02] MEDS: NAPH,MB-DB/K PH,MBDB POWDER PACKET PO ONE (11:48)
[2024-08-02] MEDS: MAGNESIUM OXIDE 400 MG TABLET (FP) PO ONE (11:48)
[2024-08-02 13:06] LABS: POTASSIUM 3.7 mmol/L (3.5-5.1)
[2024-08-02 13:10] LABS: ALBUMIN 1.7 g/dl (3.4-5.0); BLOOD UREA NITROGEN 10.5 mg/dL (7-18); CALCIUM 7.9 mg/dL (8.5-10.1)
[2024-08-02 13:12] LABS: CREATININE 1.2 mg/dL (0.55-1.3)
[2024-08-02 13:13] LABS: BILIRUBIN,TOTAL 0.2 mg/dL (0.2-1); TOT PROT 6.2 g/dl (6.4-8.2)
[2024-08-02] MEDS: MAGNESIUM SULF 50% (8.12 MEQ/2 ML-1 GM VIAL) IVPB ONE (16:28)
[2024-08-03 07:47] LABS: HEMOGLOBIN 7.4 GM/dL (10.7-15.3); MCH 29.4 pg (25.7-33.7); MCHC 33.5 g/dl (32.0-36.0); MEAN CELL VOLUME 87.7 fl (80-96); MEAN PLT VOLUME 6.5 fl (7.5-11.1); PLATELET COUNT 280 10^3/uL (134-434); RBC 2.51 M/mm3 (3.60-5.2); RDW 14.5 % (11.6-15.6); WHITE BLOOD COUNT 7.7 K/mm3 (4.0-10.0)
[2024-08-03 08:09] LABS: POTASSIUM 3.5 mmol/L (3.5-5.1)
[2024-08-03 08:17] LABS: ALBUMIN 1.7 g/dl (3.4-5.0); BLOOD UREA NITROGEN 7.6 mg/dL (7-18); CALCIUM 8.2 mg/dL (8.5-10.1)
[2024-08-03 08:18] LABS: MAGNESIUM 1.8 mg/dL (1.8-2.4)
[2024-08-03 08:21] LABS: CREATININE 1.1 mg/dL (0.55-1.3)
[2024-08-03 08:22] LABS: BILIRUBIN,TOTAL 0.2 mg/dL (0.2-1); PHOSPHOROUS 2.2 mg/dL (2.5-4.9); TOT PROT 6.4 g/dl (6.4-8.2)
[2024-08-03] MEDS: metroNIDAZOLE 250 MG TABLET PO SCH (16:43)
[2024-08-03] MEDS: CEFTRIAXONE 2 GM-D5W BAG 2 GM/50 ML BAG IVPB SCH (16:43)
[2024-08-03] MEDS: NAPH,MB-DB/K PH,MBDB POWDER PACKET PO SCH (21:12)
[2024-08-04 08:24] LABS: HEMATOCRIT 22.3 % (32.4-45.2); HEMOGLOBIN 7.5 GM/dL (10.7-15.3); MCH 29.7 pg (25.7-33.7); MCHC 33.9 g/dl (32.0-36.0); MEAN CELL VOLUME 87.8 fl (80-96); MEAN PLT VOLUME 6.6 fl (7.5-11.1); PLATELET COUNT 299 10^3/uL (134-434); RBC 2.54 M/mm3 (3.60-5.2); RDW 14.6 % (11.6-15.6)
[2024-08-04] MEDS ORDERED: INSULIN (LEVEMIR) 100 UNITS/ML UNITS SQ SCH (08:26)
[2024-08-04 08:38] LABS: POTASSIUM 3.6 mmol/L (3.5-5.1)
[2024-08-04 08:55] LABS: ALBUMIN 1.8 g/dl (3.4-5.0); CALCIUM 8.3 mg/dL (8.5-10.1)
[2024-08-04 08:56] LABS: BLOOD UREA NITROGEN 9.4 mg/dL (7-18); MAGNESIUM 1.4 mg/dL (1.8-2.4)
[2024-08-04 08:59] LABS: PHOSPHOROUS 2.2 mg/dL (2.5-4.9)
[2024-08-04 09:00] LABS: BILIRUBIN,TOTAL 0.3 mg/dL (0.2-1); TOT PROT 6.8 g/dl (6.4-8.2)
[2024-08-04] MEDS: SODIUM CHLORIDE 1,000 ML IV SCH (11:23)
[2024-08-04] MEDS: MAGNESIUM OXIDE 400 MG TABLET (FP) PO ONE (11:24)
[2024-08-04] MEDS: NAPH,MB-DB/K PH,MBDB POWDER PACKET PO ONE (11:35)
[2024-08-04] MEDS ORDERED: DEXTROSE 50%-WATER - 25 GM/50 ML VIAL IVPUSH ONE (11:36)
[2024-08-04] MEDS ORDERED: OFLOXACIN 0.3% OTIC SOLUTION 5 ML BOTTLE AU ONE (14:00)
[2024-08-04] MEDS: DEXTROSE 50%-WATER 25 GM/50 ML DISP.SYRIN IVPUSH ONE (14:36)
[2024-08-04] MEDS ORDERED: PROPOFOL 20 ML ONE (14:50)
[2024-08-04] MEDS ORDERED: MIDAZOLAM HCL 2 MG/2 ML SINGLE DOSE VIAL ONE (14:50)
[2024-08-04] MEDS ORDERED: ONDANSETRON 4 MG/2 ML VIAL IVPUSH PRN ×2 (15:02→16:05)
[2024-08-04] MEDS ORDERED: LACTATED RINGERS SOLUTION 1,000 ML IV SCH ×2 (15:15→16:05)
[2024-08-04] MEDS ORDERED: LIDOCAINE HCL/PF 2% SDV 5ML VIAL ONE (15:31)
[2024-08-04] MEDS ORDERED: DEXAMETHASONE SOD PHOSPHATE 4 MG/1 ML VIAL ONE (15:36)
[2024-08-04] MEDS: OFLOXACIN 0.3% OPHTHALMIC SOLUTION 5 ML BOTTLE AU ONE (15:44)
[2024-08-04] MEDS ORDERED: ACETAMINOPHEN 325 MG TABLET (FP) PO PRN (16:05)
[2024-08-04] MEDS ORDERED: DEXTROSE 50%-WATER 25 GM/50 ML DISP.SYRIN IVPUSH PRN (16:05)
[2024-08-04] MEDS ORDERED: ALBUTEROL SO4 HFA INHALER IH PRN (16:05)
[2024-08-04] MEDS ORDERED: SODIUM CHLORIDE 1,000 ML IV SCH (16:05)
[2024-08-04] MEDS ORDERED: metoPROLOL SUCCINATE 25 MG TAB.SR.24H (FP) PO PRN (16:05)
[2024-08-04] MEDS: MAGNESIUM SULF 50% (8.12 MEQ/2 ML-1 GM VIAL) IVPB ONE (18:55)
[2024-08-04] MEDS: INSULIN ASPART SLIDING SCALE (NOVOLOG) 1 VIAL SQ SCH (20:19)
[2024-08-04] MEDS: OSELTAMIVIR PHOSPHATE 75 MG CAPSULE PO SCH (21:13)
[2024-08-04] MEDS: metroNIDAZOLE 250 MG TABLET PO SCH (21:13)
[2024-08-04] MEDS: OFLOXACIN 0.3% OTIC SOLUTION 5 ML BOTTLE AD SCH (21:14)
[2024-08-05] MEDS: INSULIN (LEVEMIR) 100 UNITS/ML UNITS SQ SCH (06:04)
[2024-08-05 08:18] LABS: HEMATOCRIT 24.2 % (32.4-45.2); HEMOGLOBIN 8.2 GM/dL (10.7-15.3); MCH 29.9 pg (25.7-33.7); MCHC 34.1 g/dl (32.0-36.0); MEAN CELL VOLUME 87.7 fl (80-96); MEAN PLT VOLUME 6.7 fl (7.5-11.1); PLATELET COUNT 358 10^3/uL (134-434); RBC 2.75 M/mm3 (3.60-5.2); RDW 14.6 % (11.6-15.6); WHITE BLOOD COUNT 8.3 K/mm3 (4.0-10.0)
[2024-08-05 08:37] LABS: POTASSIUM 3.6 mmol/L (3.5-5.1)
[2024-08-05 08:39] LABS: BLOOD UREA NITROGEN 9.7 mg/dL (7-18); CALCIUM 8.6 mg/dL (8.5-10.1); MAGNESIUM 1.6 mg/dL (1.8-2.4)
[2024-08-05 08:42] LABS: CREATININE 0.9 mg/dL (0.55-1.3)
[2024-08-05 08:44] LABS: BILIRUBIN,TOTAL 0.2 mg/dL (0.2-1); TOT PROT 6.9 g/dl (6.4-8.2)
[2024-08-05 08:58] VITALS: RESP 18
[2024-08-05] MEDS: NAPH,MB-DB/K PH,MBDB POWDER PACKET PO ONE (10:39)
[2024-08-05] MEDS: CEFTRIAXONE 2 GM-D5W BAG 2 GM/50 ML BAG IVPB SCH (10:43)
[2024-08-05] MEDS: MAGNESIUM OXIDE 400 MG TABLET (FP) PO ONE (10:45)
[2024-08-05 18:33] VITALS: BP 142/94; PULSE 99; TEMP 98.1
== END 2024-08-05 18:52 | disposition home or self-care (01) | DRG 853 ==
LOC: JER 08:57 → JERBED 12:55 → OBSVTOIN 14:12 → J7W 15:15 → J4S 07-27 22:59
PROVIDERS: ADMIT Internal Medicine; ATTEND Internal Medicine
PROC: 0Y6X0Z0 Detachment at Right 5th Toe, Complete, Open Approach (ICD-10-PCS; 2024-07-28)
PROC: 0Y6M0Z8 Detachment at Right Foot, Complete 5th Ray, Open Approach (ICD-10-PCS; 2024-07-28)
PROC: 0Y6M0Z7 Detachment at Right Foot, Complete 4th Ray, Open Approach (ICD-10-PCS; 2024-07-28)
PROC: 3E10X8Z Irrigation of Skin and Mucous Membranes using Irrigating Substance (ICD-10-PCS; 2024-07-28)
PROC: 3E0102A Introduction of Anti-Infective Envelope into Subcutaneous Tissue, Open Approach (ICD-10-PCS; 2024-07-28)
PROC: 30233N1 Transfusion of Nonautologous Red Blood Cells into Peripheral Vein, Percutaneous Approach (ICD-10-PCS; 2024-07-28)
PROC: 0Y6V0Z0 Detachment at Right 4th Toe, Complete, Open Approach (ICD-10-PCS; principal; 2024-07-28 18:00)
PROC: 3E1 Administration, Physiological Systems and Anatomical Regions, Irrigation (ICD-10-PCS; 2024-08-05)
PROC: 3E1 Administration, Physiological Systems and Anatomical Regions, Irrigation (ICD-10-PCS; 2024-08-05)
PROC: 0CJS8ZZ Inspection of Larynx, Via Natural or Artificial Opening Endoscopic (ICD-10-PCS; 2024-08-05)
PROC: 099680Z Drainage of Left Middle Ear with Drainage Device, Via Natural or Artificial Opening Endoscopic (ICD-10-PCS; 2024-08-05)
PROC: 099580Z Drainage of Right Middle Ear with Drainage Device, Via Natural or Artificial Opening Endoscopic (ICD-10-PCS; 2024-08-05)
PROC: 02HV33Z Insertion of Infusion Device into Superior Vena Cava, Percutaneous Approach (ICD-10-PCS; 2024-08-05)
PROC: B518ZZA Fluoroscopy of Superior Vena Cava, Guidance (ICD-10-PCS; 2024-08-05)
DX: A41.89 Other specified sepsis (principal); A48.0 Gas gangrene; E11.52 Type 2 diabetes mellitus with diabetic peripheral angiopathy with gangrene; N39.0 Urinary tract infection, site not specified; N17.9 Acute kidney failure, unspecified; L03.115 Cellulitis of right lower limb; L97.518 Non-pressure chronic ulcer of other part of right foot with other specified severity; E87.1 Hypo-osmolality and hyponatremia; E11.65 Type 2 diabetes mellitus with hyperglycemia; R00.0 Tachycardia, unspecified; D64.9 Anemia, unspecified; K58.9 Irritable bowel syndrome, unspecified; R11.2 Nausea with vomiting, unspecified; J45.20 Mild intermittent asthma, uncomplicated; B96.20 Unspecified Escherichia coli [E. coli] as the cause of diseases classified elsewhere; E11.40 Type 2 diabetes mellitus with diabetic neuropathy, unspecified; B95.61 Methicillin susceptible Staphylococcus aureus infection as the cause of diseases classified elsewhere; B95.4 Other streptococcus as the cause of diseases classified elsewhere; E11.621 Type 2 diabetes mellitus with foot ulcer; I12.9 Hypertensive chronic kidney disease with stage 1 through stage 4 chronic kidney disease, or unspecified chronic kidney disease; E11.22 Type 2 diabetes mellitus with diabetic chronic kidney disease; N18.9 Chronic kidney disease, unspecified; H69.93 Unspecified Eustachian tube disorder, bilateral; E83.42 Hypomagnesemia; J10.1 Influenza due to other identified influenza virus with other respiratory manifestations; E83.39 Other disorders of phosphorus metabolism; R09.81 Nasal congestion; H92.03 Otalgia, bilateral; H61.23 Impacted cerumen, bilateral
CPT/HCPCS: 0241U-QW; 36415; 36430; 36569; 71045-TC-FY; 73630-TC-RT-FY; 76775-TC; 80048; 80053; 81003; 82010; 82272; 82728; 82746; 82803; 82962; 83036; 83540; 83550; 83605; 83690; 83735; 83930; 84100; 84703; 85025; 85027; 85045; 85651; 86038; 86140; 86160; 86803; 86850; 86900; 86901; 86922; 87040; 87070; 87075; 87076; 87086; 87186; 87205; 87389; 87633; 88305-TC; 88311-TC; 90656; 93005; 93010; 94760; 97116-GP; 97161-GP; 99285-25; G0008; G0277; G0378; G0463-25; G0480; J0131; J1644; P9058

== ENCOUNTER 2024-09-16 11:28 | Emergency (ER) | payer OTHER ==
[2024-09-16 11:34] VITALS: BMI 25.7
[2024-09-16] MEDS ORDERED: ONDANSETRON 4 MG/2 ML VIAL ONE (12:16)
[2024-09-16] MEDS ORDERED: FAMOTIDINE 20 MG/50 ML IVPB 20 MG/50 ML MG IVPB ONE (12:16)
[2024-09-16] MEDS: FAMOTIDINE 20 MG/50 ML IVPB 20 MG/50 ML MG IVPB ONE (12:56)
[2024-09-16] MEDS: SODIUM CHLORIDE 1,000 ML IV STA ×2 (12:56→14:53)
[2024-09-16] MEDS: ONDANSETRON 4 MG/2 ML VIAL IVPUSH ONE (12:56)
[2024-09-16 13:15] LABS: ABSOLUTE IMMATURE GRANULOCYTES 0.02 x10^3/uL (0.0-0.031); BASOPHILS # 0.05 x10^3/uL (0.01-0.08); EOSINOPHIL % 0.8 % (0.7-5.8); EOSINOPHILS # 0.06 x10^3/uL (0.04-0.36); HEMATOCRIT 27.7 % (34.1-44.9); MCHC 32.5 g/dl (32.2-35.5); MEAN CELL VOLUME 94.2 fl (79.4-94.8); MEAN PLT VOLUME 9.9 fl (9.4-12.3); MONOCYTE # 0.51 x10^3/uL (0.24-0.86); MONOCYTE % 6.8 % (4.7-12.5); PLATELET COUNT 293 x10^3/uL (182-369); RDW 15.1 % (12.2-17.1)
[2024-09-16 13:18] LABS: VENOUS BASE EXCESS -1.1 mmol/L (-2-2); VENOUS PCO2 48.5 mmHg (38-52); VENOUS PH 7.332 (7.310-7.410)
[2024-09-16 13:46] LABS: CHLORIDE 107 mmol/L (98-107); POTASSIUM 4.5 mmol/L (3.5-5.1); SODIUM 140 mmol/L (136-145)
[2024-09-16 13:49] LABS: CALCIUM 9.4 mg/dL (8.5-10.1)
[2024-09-16 13:50] LABS: ALBUMIN 3.2 g/dl (3.4-5.0); ANION GAP 7 mmol/L (4-13); BLOOD UREA NITROGEN 20.3 mg/dL (7-18); CO2 26 mmol/L (21-32); GLUCOSE,RANDOM 137 mg/dL (74-106)
[2024-09-16 13:53] LABS: CREATININE 1.4 mg/dL (0.55-1.3); SGOT/AST 13 U/L (15-37); SGPT/ALT 9 U/L (13-61)
[2024-09-16 13:54] LABS: BILIRUBIN,TOTAL 0.3 mg/dL (0.2-1); TOT PROT 7.6 g/dl (6.4-8.2)
[2024-09-16 13:56] LABS: ALK PHOS 118 U/L (45-117)
[2024-09-16 15:21] LABS: EPI CELLS 19 /uL (0-25.1); HYALINE CASTS 1 /uL (0-3.1); URINE APPEARANCE CLEAR; URINE BACTERIA 13 /uL (0-1359); URINE BILIRUBIN NEGATIVE (NEGATIVE); URINE COLOR YELLOW; URINE GLUCOSE (UA) 2+ (NEGATIVE); URINE KETONE NEGATIVE (NEGATIVE); URINE LEUK ESTERASE NEGATIVE (NEGATIVE); URINE NITRITE NEGATIVE (NEGATIVE); URINE PROTEIN 4+ (NEGATIVE); URINE RBC 103 /uL (0-23.9); URINE UROBILINOGEN 0.2 mg/dL (0.2-1.0); URINE WBC 7 /uL (0-25.8)
[2024-09-16] MEDS ORDERED: TAMSULOSIN HCL 0.4 MG CAP ONE (15:25)
[2024-09-16] MEDS ORDERED: HYDROmorphone HCL CARPU-JECT 2 MG/1 ML DISP.SYRIN ONE (15:25)
[2024-09-16] MEDS ORDERED: METOCLOPRAMIDE HCL INJECTION 10 MG/2 ML VIAL ONE (15:25)
[2024-09-16] MEDS: HYDROmorphone HCl 2 MG/ML VIAL IVPUSH ONE (15:30)
[2024-09-16] MEDS: TAMSULOSIN HCL 0.4 MG CAP PO ONE (15:30)
[2024-09-16] MEDS: METOCLOPRAMIDE HCL INJECTION 10 MG/2 ML VIAL IVPUSH ONE (15:30)
[2024-09-16 16:45] VITALS: BP 134/86; PULSE 106; RESP 20; TEMP 98.8
== END 2024-09-16 16:45 | disposition home or self-care (01) ==
LOC: JER 11:28
PROC: 3E033GC Introduction of Other Therapeutic Substance into Peripheral Vein, Percutaneous Approach (ICD-10-PCS; principal; 2024-09-16)
PROC: 3E033NZ Introduction of Analgesics, Hypnotics, Sedatives into Peripheral Vein, Percutaneous Approach (ICD-10-PCS; 2024-09-16)
PROC: 3E033GC Introduction of Other Therapeutic Substance into Peripheral Vein, Percutaneous Approach (ICD-10-PCS; 2024-09-16)
PROC: 3E033GC Introduction of Other Therapeutic Substance into Peripheral Vein, Percutaneous Approach (ICD-10-PCS; 2024-09-16)
PROC: 3E0337Z Introduction of Electrolytic and Water Balance Substance into Peripheral Vein, Percutaneous Approach (ICD-10-PCS; 2024-09-16)
PROC: 3E0337Z Introduction of Electrolytic and Water Balance Substance into Peripheral Vein, Percutaneous Approach (ICD-10-PCS; 2024-09-16)
DX: N20.1 Calculus of ureter (principal); R00.0 Tachycardia, unspecified; R11.2 Nausea with vomiting, unspecified; R10.31 Right lower quadrant pain
CPT/HCPCS: 36415; 74176-TC; 80053; 81003; 82803; 82962; 83690; 84702; 85025; 87086; 93005; 93010; 99285-25

== ENCOUNTER 2024-09-21 15:47 | Inpatient (IN) | payer OTHER ==
[2024-09-21] MEDS ORDERED: MIDAZOLAM HCL 2 MG/2 ML SINGLE DOSE VIAL IVPUSH ONE (16:08)
[2024-09-21 16:39] LABS: ABSOLUTE IMMATURE GRANULOCYTES 0.03 x10^3/uL (0.0-0.031); BASOPHILS # 0.03 x10^3/uL (0.01-0.08); EOSINOPHIL % 0.6 % (0.7-5.8); EOSINOPHILS # 0.05 x10^3/uL (0.04-0.36); HEMATOCRIT 30.1 % (34.1-44.9); HEMOGLOBIN 10.4 g/dL (11.2-15.7); MCHC 34.6 g/dl (32.2-35.5); MEAN CELL VOLUME 89.9 fl (79.4-94.8); MEAN PLT VOLUME 10.7 fl (9.4-12.3); MONOCYTE # 0.56 x10^3/uL (0.24-0.86); MONOCYTE % 7.3 % (4.7-12.5); PLATELET COUNT 337 x10^3/uL (182-369); RDW 13.8 % (12.2-17.1)
[2024-09-21 16:42] LABS: VENOUS BASE EXCESS 5.6 mmol/L (-2-2); VENOUS O2 SATURATION 45.3 % (70-80); VENOUS PCO2 46.2 mmHg (38-52); VENOUS PH 7.438 (7.310-7.410)
[2024-09-21 16:46] LABS: INR 1.13 (0.83-1.09); PROTHROMBIN TIME (PATIENT) 12.4 SEC (9.7-13.0)
[2024-09-21 16:48] LABS: ACTIVATED PTT 32.2 SECONDS (25.2-36.5)
[2024-09-21] MEDS ORDERED: MIDAZOLAM HCL 2 MG/2 ML SINGLE DOSE VIAL ONE (16:56)
[2024-09-21 17:02] LABS: CHLORIDE 96 mmol/L (98-107); POTASSIUM 3.8 mmol/L (3.5-5.1); SODIUM 136 mmol/L (136-145)
[2024-09-21 17:04] LABS: ANION GAP 10 mmol/L (4-13); CO2 31 mmol/L (21-32); MAGNESIUM 1.4 mg/dL (1.8-2.4)
[2024-09-21] MEDS ORDERED: PANTOPRAZOLE SODIUM 40 MG VIAL ONE (17:04)
[2024-09-21] MEDS ORDERED: ACETAMINOPHEN INJECTION 100 ML ONE (17:04)
[2024-09-21] MEDS ORDERED: ONDANSETRON 4 MG/2 ML VIAL ONE (17:04)
[2024-09-21 17:05] LABS: ALBUMIN 3.2 g/dl (3.4-5.0); BLOOD UREA NITROGEN 28.6 mg/dL (7-18); CALCIUM 9.8 mg/dL (8.5-10.1); GLUCOSE,RANDOM 294 mg/dL (74-106)
[2024-09-21 17:07] LABS: SGOT/AST 15 U/L (15-37); SGPT/ALT 12 U/L (13-61)
[2024-09-21 17:08] LABS: CREATININE 1.5 mg/dL (0.55-1.3)
[2024-09-21 17:09] LABS: TOT PROT 7.4 g/dl (6.4-8.2)
[2024-09-21 17:10] LABS: BILIRUBIN,TOTAL 0.4 mg/dL (0.2-1)
[2024-09-21 17:11] LABS: ALK PHOS 120 U/L (45-117)
[2024-09-21] MEDS: PANTOPRAZOLE SODIUM 40 MG VIAL IVPUSH ONE (17:42)
[2024-09-21] MEDS: LACTATED RINGERS SOLUTION 1000 ML INFUS.BAG IV ONE ×2 (17:42→19:11)
[2024-09-21] MEDS: ACETAMINOPHEN 1000 MG/100 ML BAG IVPB ONE (17:42)
[2024-09-21] MEDS: ONDANSETRON 4 MG/2 ML VIAL IVPUSH ONE (17:42)
[2024-09-21] MEDS ORDERED: METOCLOPRAMIDE HCL INJECTION 10 MG/2 ML VIAL ONE (18:54)
[2024-09-21] MEDS ORDERED: MAGNESIUM SULFATE IN WATER 2 GM/50 ML IVPB IVPB ONE ×2 (18:55→21:49)
[2024-09-21] MEDS: METOCLOPRAMIDE HCL INJECTION 10 MG/2 ML VIAL IVPB ONE (19:11)
[2024-09-21] MEDS: LACTATED RINGERS SOLUTION 1,000 ML/1,000 ML INFUS.BAG IV SCH (21:57)
[2024-09-21] MEDS: MAGNESIUM SULFATE IN WATER 2 GM/50 ML IVPB IVPB ONE (21:57)
[2024-09-21] MEDS ORDERED: METOCLOPRAMIDE HCL INJECTION 10 MG/2 ML VIAL IVPUSH PRN (22:00)
[2024-09-21] MEDS: INSULIN ASPART SLIDING SCALE (NOVOLOG) 1 VIAL SQ SCH (23:25)
[2024-09-22] MEDS: HEPARIN NA (PORCINE) 5,000 UNITS/ML 1ML VIAL SQ SCH (06:55)
[2024-09-22 08:35] LABS: ABSOLUTE IMMATURE GRANULOCYTES 0.02 x10^3/uL (0.0-0.031); BASOPHILS # 0.03 x10^3/uL (0.01-0.08); EOSINOPHIL % 1.7 % (0.7-5.8); EOSINOPHILS # 0.14 x10^3/uL (0.04-0.36); HEMATOCRIT 25.9 % (34.1-44.9); HEMOGLOBIN 8.6 g/dL (11.2-15.7); MCHC 33.2 g/dl (32.2-35.5); MEAN CELL VOLUME 91.5 fl (79.4-94.8); MEAN PLT VOLUME 10.3 fl (9.4-12.3); MONOCYTE # 0.68 x10^3/uL (0.24-0.86); MONOCYTE % 8.4 % (4.7-12.5); PLATELET COUNT 291 x10^3/uL (182-369); RDW 14.3 % (12.2-17.1)
[2024-09-22 08:54] LABS: POTASSIUM 3.5 mmol/L (3.5-5.1)
[2024-09-22 09:02] LABS: CALCIUM 8.6 mg/dL (8.5-10.1)
[2024-09-22 09:03] LABS: ALBUMIN 2.7 g/dl (3.4-5.0); MAGNESIUM 1.9 mg/dL (1.8-2.4)
[2024-09-22 09:04] LABS: BLOOD UREA NITROGEN 18.8 mg/dL (7-18)
[2024-09-22 09:06] LABS: CREATININE 1.1 mg/dL (0.55-1.3); PHOSPHOROUS 2.8 mg/dL (2.5-4.9)
[2024-09-22 09:08] LABS: BILIRUBIN,TOTAL 0.3 mg/dL (0.2-1); TOT PROT 6.5 g/dl (6.4-8.2)
[2024-09-22] MEDS: TAMSULOSIN HCL 0.4 MG CAP PO SCH (09:10)
[2024-09-22] MEDS: metoPROLOL SUCCINATE 25 MG TAB.SR.24H (FP) PO SCH (09:10)
[2024-09-22] MEDS: ACETAMINOPHEN 1000 MG/100 ML BAG IVPB PRN (09:51)
[2024-09-22 16:38] LABS: URINE APPEARANCE Clear; URINE BILIRUBIN Negative (NEGATIVE); URINE COLOR Yellow; URINE GLUCOSE (UA) Trace (NEGATIVE); URINE KETONE 1+ (NEGATIVE); URINE LEUK ESTERASE Negative (NEGATIVE); URINE NITRITE Negative (NEGATIVE); URINE PROTEIN 3+ (NEGATIVE); URINE UROBILINOGEN 0.2 mg/dL (0.2-1.0)
[2024-09-23] MEDS: ACETAMINOPHEN 1000 MG/100 ML BAG IVPB PRN (01:13)
[2024-09-23 07:14] VITALS: RESP 18
[2024-09-23 07:24] LABS: HEMATOCRIT 25.8 % (34.1-44.9); HEMOGLOBIN 8.6 g/dL (11.2-15.7); MCHC 33.3 g/dl (32.2-35.5); MEAN CELL VOLUME 92.1 fl (79.4-94.8); MEAN PLT VOLUME 10.3 fl (9.4-12.3); PLATELET COUNT 274 x10^3/uL (182-369); RDW 13.7 % (12.2-17.1)
[2024-09-23 08:04] LABS: ALBUMIN 2.6 g/dl (3.4-5.0); BLOOD UREA NITROGEN 11.6 mg/dL (7-18); CALCIUM 8.1 mg/dL (8.5-10.1); MAGNESIUM 1.2 mg/dL (1.8-2.4)
[2024-09-23 08:09] LABS: BILIRUBIN,TOTAL 0.4 mg/dL (0.2-1); TOT PROT 6.2 g/dl (6.4-8.2)
[2024-09-23] MEDS: MAGNESIUM SULFATE IN WATER 2 GM/50 ML IVPB IVPB ONE (09:59)
[2024-09-23] MEDS: LACTATED RINGERS SOLUTION 1,000 ML/1,000 ML INFUS.BAG IV SCH (09:59)
[2024-09-23 14:33] VITALS: BMI 21.6
[2024-09-23] MEDS: POTASSIUM CHLORIDE ORAL LIQUID 20 MEQ/15 ML PO ONE (17:33)
[2024-09-23] MEDS: MAGNESIUM 1GM/D5W 100ML - 100 ML IVPB IVPB ONE (17:33)
[2024-09-23] MEDS: LIDOCAINE 4% PATCH TP SCH (18:46)
[2024-09-23] MEDS: KCL 10 MEQ IVPB 10 MEQ/100 ML INFUS.BAG IVPB SCH (18:46)
[2024-09-23] MEDS: LIDOCAINE PATCH REMOVAL MC SCH (23:01)
[2024-09-24 08:00] LABS: POTASSIUM 3.5 mmol/L (3.5-5.1)
[2024-09-24 08:08] LABS: CALCIUM 8.9 mg/dL (8.5-10.1)
[2024-09-24 08:09] LABS: ALBUMIN 2.8 g/dl (3.4-5.0); MAGNESIUM 1.6 mg/dL (1.8-2.4)
[2024-09-24 08:13] LABS: TOT PROT 6.5 g/dl (6.4-8.2)
[2024-09-24 08:14] LABS: BILIRUBIN,TOTAL 0.4 mg/dL (0.2-1)
[2024-09-24 09:40] LABS: HEMATOCRIT 26.5 % (34.1-44.9); HEMOGLOBIN 8.9 g/dL (11.2-15.7); MCHC 33.6 g/dl (32.2-35.5); MEAN CELL VOLUME 91.7 fl (79.4-94.8); MEAN PLT VOLUME 10.7 fl (9.4-12.3); PLATELET COUNT 293 x10^3/uL (182-369); RDW 13.6 % (12.2-17.1)
[2024-09-24] MEDS ORDERED: POTASSIUM CHLORIDE ORAL LIQUID 20 MEQ/15 ML PO ONE (09:43)
[2024-09-24] MEDS: POTASSIUM CHLORIDE ORAL LIQUID 20 MEQ/15 ML PO ONE (10:30)
[2024-09-24] MEDS: MAGNESIUM SULFATE IN WATER 2 GM/50 ML IVPB IVPB ONE (10:30)
[2024-09-25 07:48] LABS: POTASSIUM 3.8 mmol/L (3.5-5.1)
[2024-09-25 07:59] LABS: CALCIUM 9.4 mg/dL (8.5-10.1)
[2024-09-25 08:00] LABS: ALBUMIN 2.8 g/dl (3.4-5.0); BLOOD UREA NITROGEN 16.4 mg/dL (7-18); MAGNESIUM 1.7 mg/dL (1.8-2.4)
[2024-09-25 08:03] LABS: CREATININE 1.2 mg/dL (0.55-1.3)
[2024-09-25 08:04] LABS: TOT PROT 6.5 g/dl (6.4-8.2)
[2024-09-25 08:05] LABS: HEMATOCRIT 28.2 % (34.1-44.9); HEMOGLOBIN 9.3 g/dL (11.2-15.7); MEAN CELL VOLUME 91.9 fl (79.4-94.8); MEAN PLT VOLUME 10.2 fl (9.4-12.3); PLATELET COUNT 297 x10^3/uL (182-369); RDW 13.9 % (12.2-17.1)
[2024-09-25 08:06] LABS: BILIRUBIN,TOTAL 0.3 mg/dL (0.2-1)
[2024-09-25] MEDS: MAGNESIUM OXIDE 400 MG TABLET (FP) PO ONE (09:31)
[2024-09-25 09:48] VITALS: BP 114/79; PULSE 104; TEMP 98.1
== END 2024-09-25 15:40 | disposition home or self-care (01) | DRG 48 ==
LOC: JER 15:47 → JERBED 18:51 → OBSVTOIN 20:28 → J7W 09-22 00:06
PROVIDERS: ADMIT Hospitalist; ATTEND Internal Medicine
DX: E11.43 Type 2 diabetes mellitus with diabetic autonomic (poly)neuropathy (principal); N17.9 Acute kidney failure, unspecified; I10 Essential (primary) hypertension; D64.9 Anemia, unspecified; K31.84 Gastroparesis; E11.65 Type 2 diabetes mellitus with hyperglycemia; E86.0 Dehydration; N20.0 Calculus of kidney; R00.0 Tachycardia, unspecified; E83.42 Hypomagnesemia; R42 Dizziness and giddiness; K80.20 Calculus of gallbladder without cholecystitis without obstruction; E87.6 Hypokalemia
CPT/HCPCS: 0241U-QW; 36415; 71045-TC-FY; 76705-TC; 76775-TC; 80053; 80307; 81003; 82010; 82550; 82803; 82962; 83605; 83690; 83735; 84100; 84484; 84703; 85025; 85027; 85610; 85730; 86850; 86900; 86901; 93005; 93010; 99285-25; G0378; J0131; J1644